=== PATIENT | female | born 1940 | race Caucasian/White ===

== ENCOUNTER → 2016-10-08 | Outpatient (CLI) | payer MEDICARE, BC, OTHER ==
[~2016-10-08] MED LIST: ACET65TA; CALCCHW12; CARV6.25 PO; CENTRUM SILVER; DIGE1CAP2 PO; EYECAP PO; IMOD2TAB16 PO; LAMI1TAB8 PO; LEVO100T5 PO; LEVO100T7; LOSA25TA8 PO; LOTE0.5S OP; METO50TA4; PEPC10TA6 PO; PHEN100C; VITA100067 PO
--- NOTE | 2016-10-08 08:46 | REP ---
Chest two views HISTORY: former smoker Comparison: 02/02/2009 The lungs are clear. The cardiac silhouette is enlarged. The pulmonary vasculature is normal in appearance. The bony structure is intact. IMPRESSION: Cardiomegaly. Signed by Pepito Otoole MD 10/08/2016 08:36 A
== END ==
LOC: M WUC 08:07
PROVIDERS: ATTEND Ophthalmology
DX: Z87.891 Personal history of nicotine dependence (principal); I51.7 Cardiomegaly

== ENCOUNTER → 2016-11-14 | Day surgery (SDC) | payer MEDICARE, BC, OTHER ==
--- NOTE | 2016-11-06 14:48 | CR ---
PREOPERATIVE EVALUATION AND CONSULTATION DATE OF CONSULTATION: 10/16/2016 CONSULTING PHYSICIAN: Yoseph Wilcox MD SURGEON: Marcin Rowan MD PLANNED PROCEDURE: Cataract extraction. CHIEF COMPLAINT: Preoperative evaluation. HISTORY OF PRESENT ILLNESS: 76-year-old patient who presents today for preoperative evaluation and consultation prior to cataract extraction. The patient has no focal complaints. She denies any jatin chest pain, new shortness of breath headache, or vision changes. She does have a number of medical issues. Regarding cardiac risks, the patient denies any cardiac symptoms at this point in time. She sees [facility] once a year for a congenital bicuspid aortic with mild aortic sclerosis, otherwise has controlled hypertension and EKG that has been stable, some chronic cardiomegaly, however no known respiratory issues, distant history of smoking. No issues with anesthesia in the past. The patient does have some irritable bowel and has seen GI in the past, otherwise, no other perioperative issues or concerns. Other medical issues including a known CP angle benign hemangioma and associated seizures for which she follows with neurologist, Dr. Luis. Hypothyroidism, controlled on replacement. History of colon cancer treated with resection, gastroesophageal reflux disease (GERD) treated with famotidine. She has an EpiPen for a nut allergy. Additionally, she has some allergic rhinitis and well controlled hypertension. Otherwise, no other new issues or concerns and each of these appear stable. PAST MEDICAL HISTORY: Hypothyroidism. History of seizures following with Dr. Luis. 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 Osteopenia. Vitamin D deficiency. Aortic sclerosis. Chronic cardiomegaly. PAST SURGICAL HISTORY: Tonsillectomy in 1944. Total thyroidectomy in 2000. Partial hysterectomy in 1981. Colectomy with Dr. Lyman for cancer in situ in 2014. ALLERGIES: 1. Nuts cause anaphylaxis. 2. She reports KEFLEX caused diarrhea (however has irritable bowel with diarrhea for which she has seen GI). 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 She has two sons, lives with her son Mac . Her other son lives in [place]. She is . She is a former smoker from age 17 until age 29. 1-2 packs a day. She has not smoked in the last 47 years. She has rare alcohol intake. FAMILY HISTORY: Father of Parkinson's. Mother of hypertension. PHYSICAL EXAMINATION: VITAL SIGNS: Weight of 109 pounds. Pulse 60. Blood pressure 120/52. Height of 61 inches. GENERAL: No acute distress, nontoxic, alert and oriented times three. She is pleasant, speaks articulately, smiles and interacts. HEAD: Head is atraumatic, normocephalic. No abnormalities of the scalp. EYES: Pupils equal, round and reactive to light and accommodation. Extraocular motions intact. No lesions of the lid or conjunctiva. ENT: Ears are benign as are the canals bilaterally. Oral cavity, oropharynx benign. NECK: Supple. No lymphadenopathy or thyromegaly. HEART: Regular rate and rhythm, S1 and S2. 2/6 systolic murmur is noted. LUNGS: Clear to auscultation bilaterally. No rales, rhonchi or wheezes. ABDOMEN: Soft, nontender, nondistended. No significant issues with pain. EXTREMITIES: No clubbing, cyanosis, or edema. PREOPERATIVE TESTING: Includes a chest x-ray showing only organomegaly. EKG showing sinus bradycardia at 56 beats per minute with nonspecific changes, which have not changed since 10/25/2015. ASSESSMENT/PLAN: 1. Preoperative evaluation and consultation. At this point in time, the patient appears to be optimized on her present medications. She does have risks including valvular heart disease, cardiomegaly, and abnormal EKG. However, each appear to be generally monitored and mitigated at this point in time and she is without significant respiratory or anesthesia risks and will followup appropriately. 2. Cataracts. The patient looks forward to better vision and undergoing surgical intervention. 3. Hypertension. Well controlled on her present regimen. Will continue. 4. Hyperlipidemia. Controlled on diet. Will monitor. 5. Hypothyroidism. Doing well on present dose of replacement. 6. Irritable bowel with diarrhea. She has seen GI, however is using Lomotil as needed. Will monitor. 7. Gastroesophageal reflux disease (GERD). Doing well on famotidine and will continue. 8. Allergic rhinitis. Doing well on as needed use of Claritin. 9. Other seizures. Following with Dr. Luis, is maintained on medications and has had no seizures since then. 10. Cardiac murmur/aortic sclerosis. Following with cardiology annually. She does have a congenital bicuspid aortic valve. 11. Personal history of malignancy of the large colon. The patient had in situ removed by Dr. Lyman and follows with him appropriately. 12. In situ melanoma of the right leg. Patient follows with Shahla Peña. 13. Ongoing care. I am going to see the patient again as scheduled. If she has new problems or other issues sooner, she will let me know.
[~2016-11-14] VITALS: Ht 154.9 cm; Wt 49.9 kg
[~2016-11-14] MED LIST changes: +ACETYLCHOLINE OPHTH SOLN 1% 2ML (MIOCHOL-E) As Ordered ONE; +BALANCED SALT IRRIGATION SOLUTION 500ML BAG (FOR OR EYE MACHINE) As Ordered ONE; +CEFUROXIME 1MG/0.1ML INTRACAMERAL INJ As Ordered ONE; +DUOVISC (0.50ML VISCOAT/0.55ML PROVISC) OPHTH KIT As Ordered ONE; +LIDOCAINE 0.75%/EPINEPHRINE 0.025% IN BSS 1ML SYR INTRACAMERAL (OR ONLY) As Ordered ONE; +LR 1,000 ML IV ONE; +MIDAZOLAM INJ 2 MG/2 ML VIAL (J2250) As Ordered ONE; +OFLOXACIN 0.3 % (OCUFLOX) OPTH SOL 5ML OD ONE; +PHENYLEPHRINE 2.5% OPHTH SOL 2ML OD ONE; +POVIDONE-IODINE 5% OPHTH PREP SOL 30ML As Ordered ONE; +PROPARACAINE 0.5% OPHTH SOL 15ML OD ONE; +TROPICAMIDE 1% OPHTH SOLN 2ML OD ONE; +fentaNYL 100 MCG/2 ML INJECTION (J3010) As Ordered ONE
[2016-11-14 11:30] VITALS: BP 142/80
--- NOTE | 2016-11-14 22:09 | RO ---
DATE OF PROCEDURE: 11/14/2016 PREOPERATIVE DIAGNOSIS: Visually significant nuclear sclerotic cataract right eye. POSTOPERATIVE DIAGNOSIS: Visually significant nuclear sclerotic cataract right eye. PROCEDURE: Cataract extraction with use of phacoemulsification, and placement of intraocular lens, AU00T0, 25.5 diopter, right eye. SURGEON: Marcin Rowan DO MUSIC BOX MECHANIC: ANESTHESIA: Local with monitored anesthesia care (MAC). COMPLICATIONS: None. POSTOPERATIVE CONDITION: Stable. INDICATION FOR SURGERY: Blurred vision right eye affecting patient's activities of daily living. DESCRIPTION OF PROCEDURE: The patient was seen in the preoperative area and properly identified. The correct operative eye was identified and marked. Attention was turned to that eye. The patient received topical antibiotics in the preoperative area. The patient then received topical dilating drops consisting of Tropicamide and Phenylephrine. The patient was then transferred to the operating room. The correct side was re-identified. The patient received topical anesthetics and antibiotics on the surface of the eye. The eye was prepped and draped in a sterile fashion. The upper and lower eyelids were isolated with Tegaderm tape, and the lids were held open with an adjustable speculum. Using a sideport blade, a paracentesis incision was made. Intraocular preservative-free lidocaine was then injected into the anterior chamber. Viscoelastic was then injected into the anterior chamber through the paracentesis. Using a 2.4 mm sharp-tipped keratome, the anterior chamber was entered via a temporal clear corneal incision. A continuous curvilinear capsulorrhexis was created with the aid of a 26g cystotome and utrata forceps. Hydrodissection was performed with balanced salt solution (BSS) on a blunt cannula until the nucleus was freely mobile. The crystalline lens was phacoemulsified and aspirated. Additional cohesive viscoelastic was placed into the capsular bag to deepen it. An AU00T0, 25.5 diopter lens was placed into the capsular bag and confirmed by visualizing the continuous curvilinear capsulorrhexis. Additional irrigation and aspiration was used to remove cortical material and remaining viscoelastic. The clear corneal incision was hydrated with BSS on a blunt cannula. The lens was well positioned. The incisions were then tested for leaks and found to be negative. The eye was then palpated for appropriate pressure and adjusted accordingly with BSS. The eyelid speculum was carefully removed. A shield was placed. The patient tolerated the procedure well and was discharged to the recovery unit in a stable condition. TRISTEN
== END | disposition home or self-care (01) ==
LOC: M SDC 09:28
PROVIDERS: ATTEND Ophthalmology
DX: H25.11 Age-related nuclear cataract, right eye (principal); I10 Essential (primary) hypertension; E03.9 Hypothyroidism, unspecified; I35.9 Nonrheumatic aortic valve disorder, unspecified; R01.1 Cardiac murmur, unspecified; E04.1 Nontoxic single thyroid nodule; R19.7 Diarrhea, unspecified; M12.9 Arthropathy, unspecified; D23.9 Other benign neoplasm of skin, unspecified; Z88.1 Allergy status to other antibiotic agents; Z91.018 Allergy to other foods; Z79.899 Other long term (current) drug therapy; Z86.69 Personal history of other diseases of the nervous system and sense organs; Z90.710 Acquired absence of both cervix and uterus; Z78.0 Asymptomatic menopausal state
CPT/HCPCS: 66984; J2250; J3010; V2632

== ENCOUNTER 2016-11-28 08:58 | Day surgery (SDC) | payer MEDICARE, BC, OTHER ==
[~2016-11-28] VITALS: Ht 154.9 cm; Wt 50.0 kg
[~2016-11-28 08:58] MED LIST changes: -IMOD2TAB16 PO; -LR 1,000 ML IV ONE; -OFLOXACIN 0.3 % (OCUFLOX) OPTH SOL 5ML OD ONE; +OFLOXACIN 0.3 % (OCUFLOX) OPTH SOL 5ML OS ONE; -PHENYLEPHRINE 2.5% OPHTH SOL 2ML OD ONE; +PHENYLEPHRINE 2.5% OPHTH SOL 2ML OS ONE; -PROPARACAINE 0.5% OPHTH SOL 15ML OD ONE; +PROPARACAINE 0.5% OPHTH SOL 15ML OS ONE; -TROPICAMIDE 1% OPHTH SOLN 2ML OD ONE; +TROPICAMIDE 1% OPHTH SOLN 2ML OS ONE
[2016-11-28] MEDS ORDERED: LR 500 ML IV SCH (09:15)
[2016-11-28] MEDS ORDERED: IMOD2TAB16 PO (09:55)
[2016-11-28] MEDS ORDERED: LR 1,000 ML IV SCH (11:00)
[2016-11-28] MEDS ORDERED: ACETAMINOPHEN TAB 650MG DOSE (2X325MG) PO PRN (11:00)
[2016-11-28] MEDS ORDERED: ONDANSETRON 4MG/2ML VIAL (J2405) IV PRN (11:00)
[2016-11-28 11:05] VITALS: BP 152/81
--- NOTE | 2016-11-28 15:52 | RO ---
DATE OF SURGERY: 11/28/2016 PREOPERATIVE DIAGNOSES: 1. Visually significant nuclear sclerotic cataract left eye. 2. Conjunctivochalasis., left eye POSTOPERATIVE DIAGNOSES: 1. Visually significant nuclear sclerotic cataract left eye. 2. Conjunctivochalasis, left eye PROCEDURE: 1. Extracapsular cataract extraction with intraocular lens implant, AU00T0, 26.5 D 2. Conjunctivochalasis repair with use of bent monopolar cautery. SURGEON: Marcin Rowan DO DIRECTOR CREDIT RISK: ANESTHESIA: Local with monitored anesthesia care (MAC). COMPLICATIONS: None. POSTOPERATIVE CONDITION: Stable. INDICATION FOR SURGERY: Blurred vision right eye affecting patient's activities of daily living. DESCRIPTION OF PROCEDURE: The patient was seen in the preoperative area and properly identified. The correct operative eye was identified and marked. Attention was turned to that eye. The patient received topical antibiotics in the preoperative area. The patient then received topical dilating drops consisting of Tropicamide and Phenylephrine. The patient was then transferred to the operating room. The correct side was re-identified. The patient received topical anesthetics and antibiotics on the surface of the eye. The eye was prepped and draped in a sterile fashion. The upper and lower eyelids were isolated with Tegaderm tape, and the lids were held open with an adjustable speculum. Using a sideport blade, a paracentesis incision was made. Intraocular preservative-free lidocaine was then injected into the anterior chamber. Viscoelastic was then injected into the anterior chamber through the paracentesis. Using a 2.4 mm sharp-tipped keratome, the anterior chamber was entered via a temporal clear corneal incision. A continuous curvilinear capsulorrhexis was created with the aid of a 26g cystotome and utrata forceps. Hydrodissection was performed with balanced salt solution (BSS) on a blunt cannula until the nucleus was freely mobile. The crystalline lens was phacoemulsified and aspirated. Additional cohesive viscoelastic was placed into the capsular bag to deepen it. An AU00T0, 26.5 diopters lens was placed into the capsular bag and confirmed by visualizing the continuous curvilinear capsulorrhexis. Additional irrigation and aspiration was used to remove cortical material and remaining viscoelastic. The clear corneal incision was hydrated with BSS on a blunt cannula. The lens was well positioned. The incisions were then tested for leaks and found to be negative. The eye was then palpated for appropriate pressure and adjusted accordingly with BSS. The excess inferior conjunctiva was elevated with forceps. The bent monopolar cautery was then gently applied to the excessive conjunctiva until a whitening appearance was created. This was performed in three different quadrants, inferior and then superior conjunctiva, to create a shrink wrap effect. The patient tolerated the procedure well. The eyelid speculum was carefully removed. A shield was placed. The patient tolerated the procedure well and was discharged to the recovery unit in a stable condition. TRISTEN
== END 2016-11-28 11:40 | disposition home or self-care (01) ==
LOC: M SDC 08:58
PROVIDERS: ATTEND Ophthalmology
DX: H25.12 Age-related nuclear cataract, left eye (principal); H11.822 Conjunctivochalasis, left eye; I10 Essential (primary) hypertension; E03.9 Hypothyroidism, unspecified; I35.9 Nonrheumatic aortic valve disorder, unspecified; R01.1 Cardiac murmur, unspecified; E04.1 Nontoxic single thyroid nodule; R19.7 Diarrhea, unspecified; M12.9 Arthropathy, unspecified; R56.9 Unspecified convulsions; Z88.1 Allergy status to other antibiotic agents; Z91.018 Allergy to other foods; Z79.899 Other long term (current) drug therapy; Z90.710 Acquired absence of both cervix and uterus; Z78.0 Asymptomatic menopausal state
CPT/HCPCS: 66984; 68115; J2250; J3010; V2632

== ENCOUNTER → 2017-04-25 | Outpatient (CLI) | payer MEDICARE, BC, OTHER | LOC: M PLARAD 07:55 | DX: D32.9 Benign neoplasm of meninges, unspecified (principal); Z86.73 Personal history of transient ischemic attack (TIA), and cerebral infarction without residual deficits; I67.82 Cerebral ischemia; G31.9 Degenerative disease of nervous system, unspecified | CPT/HCPCS: 70551 ==

== ENCOUNTER → 2019-03-24 | Outpatient (REF) | payer MEDICARE, BC, OTHER ==
[~2019-03-24] MED LIST changes: -ACETYLCHOLINE OPHTH SOLN 1% 2ML (MIOCHOL-E) As Ordered ONE; -BALANCED SALT IRRIGATION SOLUTION 500ML BAG (FOR OR EYE MACHINE) As Ordered ONE; -CEFUROXIME 1MG/0.1ML INTRACAMERAL INJ As Ordered ONE; -DUOVISC (0.50ML VISCOAT/0.55ML PROVISC) OPHTH KIT As Ordered ONE; +IMOD2TAB16 PO; -LIDOCAINE 0.75%/EPINEPHRINE 0.025% IN BSS 1ML SYR INTRACAMERAL (OR ONLY) As Ordered ONE; +LOSA25TA14 PO; -LOSA25TA8 PO; -MIDAZOLAM INJ 2 MG/2 ML VIAL (J2250) As Ordered ONE; -OFLOXACIN 0.3 % (OCUFLOX) OPTH SOL 5ML OS ONE; -PHENYLEPHRINE 2.5% OPHTH SOL 2ML OS ONE; -POVIDONE-IODINE 5% OPHTH PREP SOL 30ML As Ordered ONE; -PROPARACAINE 0.5% OPHTH SOL 15ML OS ONE; -TROPICAMIDE 1% OPHTH SOLN 2ML OS ONE; -fentaNYL 100 MCG/2 ML INJECTION (J3010) As Ordered ONE
== END ==
LOC: M SFHCWAGY 17:05
PROVIDERS: ATTEND Nurse Practitioner Women's Health
DX: N90.89 Other specified noninflammatory disorders of vulva and perineum (principal)
CPT/HCPCS: 87255; G0463

== ENCOUNTER 2019-10-31 15:33 | Emergency (ER) | payer MEDICARE, BC, OTHER ==
[~2019-10-31] VITALS: Ht 154.9 cm; Wt 48.1 kg
[2019-10-31] MEDS ORDERED: ECOT81TA5 PO (15:48)
[2019-10-31] MEDS ORDERED: FLUORESCEIN OPHTH 1 MG STRIP As Ordered ONE (16:28)
[2019-10-31] MEDS ORDERED: FLUORESCEIN OPHTH 1 MG STRIP OU ONE (16:30)
[2019-10-31] MEDS ORDERED: TETRACAINE 0.5% OPHTH SOLN 4ML OU ONE (16:30)
[2019-10-31 17:05] VITALS: BP 172/77
== END 2019-10-31 17:09 | disposition home or self-care (01) ==
LOC: M ED 15:33
DX: H43.811 Vitreous degeneration, right eye (principal); Z79.899 Other long term (current) drug therapy; Z91.018 Allergy to other foods; Z88.8 Allergy status to other drugs, medicaments and biological substances

== ENCOUNTER → 2019-11-02 | Outpatient (REF) | payer MEDICARE, BC, OTHER ==
[~2019-11-02] MED LIST changes: +ASPI-1 PO; +ECOT81TA5 PO; +LEVO112T2 PO
[2019-11-02 21:14] LABS: AMYLASE 66 U/L (25-115); LIPASE 82 U/L (73-393)
== END ==
LOC: M LAB REF 10:02
PROVIDERS: ATTEND Family Medicine
DX: R10.9 Unspecified abdominal pain (principal)

== ENCOUNTER → 2019-11-07 | Outpatient (REF) | payer MEDICARE, OTHER | LOC: M LAB REF 21:20 | PROVIDERS: ATTEND Family Medicine | DX: R19.7 Diarrhea, unspecified (principal) ==

== ENCOUNTER 2019-12-04 08:52 | Emergency (ER) | payer MEDICARE, BC, OTHER ==
[~2019-12-04] VITALS: Ht 154.9 cm; Wt 48.9 kg
[~2019-12-04 08:52] MED LIST changes: -ASPI-1 PO; -LEVO112T2 PO
[2019-12-04] MEDS ORDERED: LEVO112T2 PO (09:08)
[2019-12-04] MEDS ORDERED: ASPI-1 PO (09:08)
[2019-12-04 09:43] LABS: BASO # 0.1 10^3/uL (0.0-0.2); BASO % 0.5 % (0.0-1.0); EOS # 0.5 10^3/uL (0.0-0.5); EOS % 2.3 % (0.0-3.0); HEMATOCRIT 39.8 % (36.0-47.0); HEMOGLOBIN 12.6 g/dl (12.0-15.5); LYMPH # 1.6 10^3/uL (1.5-5.0); LYMPH % 7.8 % (24.0-44.0); MEAN CORPUSCULAR HEMOGLOBIN 29.3 pg (27.0-33.0); MEAN CORPUSCULAR HGB CONC 31.7 g/dl (32.0-36.5); MEAN CORPUSCULAR VOLUME 92.6 fl (80.0-96.0); MONO # 1.8 10^3/uL (0.0-0.8); MONO % 9.2 % (0.0-5.0); NEUTROPHILS # 15.9 10^3/uL (1.5-8.5); NEUTROPHILS % 79.6 % (36.0-66.0); PLATELET COUNT, AUTOMATED 314 10^3/uL (150-450); WHITE BLOOD COUNT 19.9 10^3/uL (4.0-10.0)
--- NOTE | 2019-12-04 09:58 | REPVR ---
PROCEDURE INFORMATION: Exam: XR Chest, 1 View Exam date and time: 12/04/2019 9:30 AM Age: 79 years old Clinical indication: Chest pain TECHNIQUE: Imaging protocol: XR of the chest Views: 1 view. COMPARISON: CR CHEST 2 VIEW 10/08/2016 8:14 AM FINDINGS: Lungs: Emphysematous change and interstitial prominence. Pleural space: No significant pleural effusion. Heart/Mediastinum: Borderline cardiomegaly. Bones/joints: Osteopenia, degenerative change, and mild scoliosis. When correlating with the previous study, no significant interval changes are present. IMPRESSION: Stable appearance of the chest, not significantly changed from 10/08/16. Electronically signed by: Sb Tovar On 12/04/2019 09:58:36 AM
[2019-12-04 10:41] LABS: ALBUMIN 3.6 GM/DL (3.2-5.2); BILIRUBIN,DIRECT 0.2 MG/DL (0.0-0.2); BILIRUBIN,TOTAL 0.5 MG/DL (0.2-1.0); TOTAL PROTEIN 6.7 GM/DL (6.4-8.2)
[2019-12-04 12:35] LABS: BASO # 0.1 10^3/uL (0.0-0.2); BASO % 0.4 % (0.0-1.0); EOS # 0.3 10^3/uL (0.0-0.5); EOS % 1.7 % (0.0-3.0); HEMATOCRIT 39.5 % (36.0-47.0); HEMOGLOBIN 12.5 g/dl (12.0-15.5); LYMPH # 1.3 10^3/uL (1.5-5.0); LYMPH % 7.2 % (24.0-44.0); MEAN CORPUSCULAR HEMOGLOBIN 29.3 pg (27.0-33.0); MEAN CORPUSCULAR HGB CONC 31.6 g/dl (32.0-36.5); MEAN CORPUSCULAR VOLUME 92.7 fl (80.0-96.0); MONO # 1.7 10^3/uL (0.0-0.8); NEUTROPHILS # 15.1 10^3/uL (1.5-8.5); NEUTROPHILS % 81.2 % (36.0-66.0); PLATELET COUNT, AUTOMATED 301 10^3/uL (150-450); RED BLOOD COUNT 4.26 10^6/uL (4.00-5.40); WHITE BLOOD COUNT 18.6 10^3/uL (4.0-10.0)
[2019-12-04] MEDS ORDERED: GASTROGRAFIN SOLUTION 30ML (Q9963) As Ordered ONE (13:43)
[2019-12-04] MEDS: GASTROGRAFIN SOLUTION 30ML PO SCH ×2 (13:51→14:23)
[2019-12-04] MEDS ORDERED: ISOVUE-370 76% 100ML VIAL As Ordered ONE (15:15)
--- NOTE | 2019-12-04 16:14 | REPVR ---
PROCEDURE INFORMATION: Exam: CT Abdomen And Pelvis With Contrast Exam date and time: 12/04/2019 3:16 PM Age: 79 years old Clinical indication: Abdominal pain; Generalized; Additional info: Leukocytosis, abd pain, change in bowel habitus TECHNIQUE: Imaging protocol: Computed tomography of the abdomen and pelvis with intravenous contrast. Radiation optimization: All CT scans at this facility use at least one of these dose optimization techniques: automated exposure control; mA and/or kV adjustment per patient size (includes targeted exams where dose is matched to clinical indication); or iterative reconstruction. Contrast material: ISOVUE 370; Contrast volume: 100 ml; Contrast route: INTRAVENOUS (IV); COMPARISON: CT ABD PELVIS W/O CONTRAST 09/30/2013 4:04 PM FINDINGS: Lungs: Linear atelectasis in the left lower lobe. Liver: 2.6 cm low-density lesion with peripheral nodular enhancement in the right hepatic dome, most likely reflecting a meningioma. 2.9 cm low-density lesion in the left hepatic lobe, not present on prior CT from 2013. Gallbladder and bile ducts: Multiple large gallstones. Gallbladder is mildly hydropic. No gallbladder wall thickening. Pancreas: Unremarkable. No ductal dilation. Spleen: Unremarkable. Adrenals: Unremarkable. Kidneys and ureters: 1.2 cm fluid density cyst in the left kidney, to which no further follow-up is necessary. No hydronephrosis or stones. Stomach and bowel: Idot-dj-ouysitsl stool burden throughout the colon. Small bowel loops are unremarkable. Appendix: No evidence of appendicitis. Intraperitoneal space: No pneumoperitoneum. No significant fluid collection. Vasculature: Atherosclerotic calcifications of the aorta and major branches. Lymph nodes: No enlarged lymph nodes. Urinary bladder: Unremarkable as visualized. Reproductive: Unremarkable as visualized. Bones/joints: Stable nonspecific sclerotic lesion within the L2 vertebral body. Degenerative changes of the visualized spine. No acute fracture. Soft tissues: Unremarkable. IMPRESSION: 1. Multiple large gallstones within a mildly hydropic gallbladder. Recommend correlation with LFTs and consider dedicated right upper quadrant ultrasound if clinically indicated. 2. Anrw-li-bfqfifoj stool burden throughout the colon. 3. 2.9 cm low-density lesion in the left hepatic lobe, not present on prior CT from 2013. Recommend follow-up dedicated nonemergent abdominal CT or MRI using hepatic mass protocol. 4. Other chronic findings, as above. Electronically signed by: Jay Spivey On 12/04/2019 16:14:00 PM
[2019-12-04 17:45] VITALS: BP 138/73
--- NOTE | 2019-12-04 17:48 | REPVR ---
PROCEDURE INFORMATION: Exam: US Abdomen, Limited; Right Upper Quadrant Exam date and time: 12/04/2019 5:24 PM Age: 79 years old Clinical indication: Abdominal pain; Acute; Additional info: Wbc 19,000, hydrops with stones TECHNIQUE: Imaging protocol: US abdomen. Real time ultrasound with image documentation. Limited exam focused on the right upper quadrant. COMPARISON: CT ABD/PEL W/IV ORAL CONTRAS 12/04/2019 3:16 PM FINDINGS: Liver: 2.4 cm echogenic lesion in the right hepatic lobe, likely hemangioma. Previously seen low-density lesion in the left hepatic lobe on CT is not visualized on this examination. Gallbladder: Multiple large shadowing gallstones. No gallbladder wall thickening. Mildly hydropic gallbladder. Sonographic Sue's sign is negative. Common bile duct: The common bile duct measures up to 0.3 cm in diameter. Pancreas: Visualized pancreas is unremarkable. Right kidney: The right kidney measures 10 cm in length. Normal echogenicity. No hydronephrosis or stones. IMPRESSION: Cholelithiasis in a mildly hydropic gallbladder. No definite sonographic evidence of acute cholecystitis. Electronically signed by: Jay Spivey On 12/04/2019 17:48:22 PM
[2019-12-04] MEDS ORDERED: BISACODYL 5 MG TAB PO ONE (18:00)
[2019-12-04] MEDS ORDERED: ACETAMINOPHEN TAB 650MG DOSE (2X325MG) PO ONE (18:00)
--- NOTE | 2019-12-05 05:41 | ECGEPIP ---
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
== END 2019-12-04 18:54 | disposition home or self-care (01) ==
LOC: M ED 08:52
DX: R07.9 Chest pain, unspecified (principal); D72.829 Elevated white blood cell count, unspecified; K80.80 Other cholelithiasis without obstruction; I10 Essential (primary) hypertension; K21.9 Gastro-esophageal reflux disease without esophagitis; Z88.1 Allergy status to other antibiotic agents; Z88.8 Allergy status to other drugs, medicaments and biological substances; Z91.010 Allergy to peanuts
CPT/HCPCS: 36415; 71045; 74177; 76705; 80047; 80076; 81001; 83690; 84484; 85025; 87086; 93005; 93041; 94760; 99285; Q9967

== ENCOUNTER → 2019-12-15 | Outpatient (REF) | payer MEDICARE, OTHER ==
[~2019-12-15] MED LIST changes: +ASPI-1 PO; +LEVO112T2 PO
== END ==
LOC: M LAB REF 16:31
PROVIDERS: ATTEND Family Medicine
DX: N39.0 Urinary tract infection, site not specified (principal)

== ENCOUNTER → 2020-05-22 | Outpatient (CLI) | payer MEDICARE, BC, OTHER ==
[~2020-05-22] MED LIST changes: +ISOVUE-370 76% 100ML VIAL As Ordered ONE
--- NOTE | 2020-05-22 15:27 | REP ---
INDICATION: LESION LT HEPATIC LOBE. COMPARISON: Comparison is made with prior CT study from December 04, 2019 which was done with IV contrast. Prior CT studies from January 11, 2011 and September 30, 2013 are reviewed. These were noncontrast exams. The most recent prior study is interpreted as showing a 2.9 cm low-density lesion in the left lobe of the liver which was not present on 2014 prior study.. TECHNIQUE: Abdomen CT study is performed prior to and using 3 phase postcontrast acquisition, 3 mm axial images re-formatted. Coronal and sagittal MPR images are included. 100 mL of intravenous Isovue 370 is given. FINDINGS: A stable right hepatic lobe hemangioma is observed measuring approximately 3.1 cm in greatest diameter. This may be a little smaller than on the [address] study. Large faintly opaque gallstones are noted in the gallbladder. Common bile duct and intrahepatic bile ducts are not dilated. No pancreatic or splenic abnormality seen. Normal adrenal glands are observed. The kidneys enhance symmetrically and are morphologically intact. Left hepatic lobe lesion identified on the December 04, 2019 study is again seen. On the noncontrast and arterial phase contrast images there are focal calcifications in this lesion. The lesion measures 3.0 cm in greatest dimension by 1.6 cm by 1.9 cm. On the venous phase imaging, there is some discontinuous peripheral contrast enhancement in the left lobe lesion. This lesion does not fill in however on the 5 minutes delayed images. It is unchanged in size when compared with the December 04, 2019 study. No new hepatic lesion is observed. Study is otherwise unremarkable. IMPRESSION: Two hepatic lesions. No change in hypervascular lesion in the right lobe in the interval since December 04, 2019 study. The new lesion identified recently in the left lobe is unchanged from the recent prior study of December 04, 2019. It contains some calcifications and peripheral discontinuous contrast enhancement. Atypical hemangioma versus other lesion. The imaging findings are nonspecific. Continued follow-up is advised in 6 months. <Electronically signed by Cal Zhao > 05/22/20 1528
== END ==
LOC: M RAD 13:18
PROVIDERS: ATTEND Family Medicine
DX: K76.9 Liver disease, unspecified (principal)
CPT/HCPCS: 74170; Q9967

== ENCOUNTER → 2020-07-04 | Outpatient (REF) | payer MEDICARE, OTHER ==
[~2020-07-04] MED LIST changes: -ISOVUE-370 76% 100ML VIAL As Ordered ONE
== END ==
LOC: M LAB REF 16:14
PROVIDERS: ATTEND Family Medicine
DX: Z85.038 Personal history of other malignant neoplasm of large intestine (principal); Z79.899 Other long term (current) drug therapy

== ENCOUNTER → 2020-10-04 | Outpatient (CLI) | payer MEDICARE, BC, OTHER ==
--- NOTE | 2020-10-04 14:04 | REP ---
INDICATION: KANE OF UNCERTAIN BEHAVIOR. COMPARISON: None. TECHNIQUE: Real-time sonographic evaluation performed of the palpable abnormality in the left posterior neck soft tissues. FINDINGS: An oval, smoothly marginated, well-defined solid nodule is seen at the site of the palpable lump in left posterior neck soft tissues. This measures 1.4 x 0.8 x 1.4 cm. IMPRESSION: Nonspecific solid nodule at the site of the palpable lump left posterior neck soft tissues. Recommend ultrasound-guided sampling. <Electronically signed by Heriberto Bradley > 10/04/20 1400
== END ==
LOC: M RAD 10:42
PROVIDERS: ATTEND Otolaryngology
DX: D48.9 Neoplasm of uncertain behavior, unspecified (principal)

== ENCOUNTER → 2020-11-02 | Outpatient (CLI) | payer MEDICARE, BC, OTHER ==
[~2020-11-02] MED LIST changes: +LIDOCAINE 1% MDV 20ML VIAL As Ordered ONE
[2020-11-02 14:30] VITALS: BP 162/85
--- NOTE | 2020-11-03 17:02 | REP ---
INDICATION: LT POSTERIOR TRIANGLE MASS SOFT TISSUE NECK. COMPARISON: None. TECHNIQUE: The procedure was performed under the direct supervision of Dr. Bradley. The patient has a history of a 1.4 x 0.8 x 1.4 cm well-defined solid nodule in the left posterior neck soft tissue seen on a previous ultrasound dated 10/04/2020. The risks and benefits of the procedure were explained to the patient and informed consent was obtained. The left posterior neck nodule was localized using ultrasound guidance. The skin was prepped and draped in a sterile fashion. 3 mL of 1% lidocaine was used as a local anesthetic. Using ultrasound guidance a 17/18 gauge coaxial needle biopsy system was inserted and advanced into the nodule. Eight core biopsy samples were obtained and sent to the lab for analysis. Estimated blood loss: Less than 1 mL The patient tolerated the procedure well and there were no immediate complications. After the appropriate amount to monitor convalescence the patient was discharged from the department. FINDINGS: None IMPRESSION: Ultrasound-guided left posterior neck nodule biopsy. <Electronically signed by Theodore Holley > 11/03/20 1633 <Electronically signed by Heriberto Bradley > 11/03/20 [id number]
== END ==
LOC: M IRPRO 13:27
PROVIDERS: ATTEND Otolaryngology
DX: C77.0 Secondary and unspecified malignant neoplasm of lymph nodes of head, face and neck (principal)

== ENCOUNTER → 2020-12-01 | Outpatient (CLI) | payer MEDICARE, BC, OTHER ==
[~2020-12-01] MED LIST changes: -LIDOCAINE 1% MDV 20ML VIAL As Ordered ONE; +LOPE-39 PO; +META28.32 PO; +MULTTAB61 PO
--- NOTE | 2020-12-01 13:49 | REPMRS ---
Patient History The patient states she has not had a clinical breast exam in over a year. Patient has history of other cancer at age 80. Patient states no breast complaints today. Patient has signed MRS History Sheet. Digital Woman Screen Mammo: December 01, 2020 - Exam #: [id number] Bilateral CC and MLO view(s) were taken. Technologist: Latricia Lainez, Technologist Prior study comparison: November 13, 2011, bilateral bilat screen digital mammo, performed at [facility] ([facility]). July 28, 2008, bilateral screening mammogram, performed at [facility] ([facility]). FINDINGS: The breast tissue is heterogeneously dense. This may lower the sensitivity of mammography. Screening. Digital screening (2D) mammography was performed bilaterally in the CC and MLO projections. Additionally, breast tomosynthesis (3D mammography) was performed bilaterally in the CC and MLO projections. Todays exam was compared to the prior exam/exams.There are no prior DBT images for comparison. By history, the patient has no complaints of a palpable breast abnormality or other significant breast complaints. The breasts are unchanged in size and shape.Once again, dense heterogenous fibroglandular elements are seen bilaterally in a stable appearing pattern but to such a degree that the sensitivity of the mammogram in detecting cancer is decreased. There are no carlie-soft tissue densities or spiculated masses. There is no internal architectural distortion. There are no suspicious carlie-calcific clusters. Skin thickening or nipple retraction is not present. IMPRESSION: BI-RADS Category 2- Benign Findings. There is no evidence of malignant alteration of the breasts. Followup examination recommended in one year. The Volpara volumetric breast density category is C, the breasts are heterogenously dense which may obscure small masses. This mammogram was read with the assistance of [employer]an FDA approved computer aided detection system for mammography. The lifetime Tyrer-Cuzick score is 1.8 % Due to the density of the breasts or Tyrer Cuzick score of 20% or greater, MRI/whole breast screening ultrasound is warranted. Negative x-ray reports should not delay surgical consultation if a dominant or clinically suspicious mass is present. Not all breast cancers can be identified by mammography. Therefore, we recommend that you continue to perform regular breast self-examination and physical examination and then promptly contact your physician of any concerns or changes. Adenosis and dense breasts may obscure an underlying neoplasm. Assessment: BI-RADS/ACR category 2 mammogram. Benign Findings. Recommendation Routine screening mammogram of both breasts in 1 year. Electronically Signed By: Fred Gregg DO 12/01/20 8081
== END ==
LOC: M WHC 13:00
PROVIDERS: ATTEND Internal Medicine Medical Oncology
DX: Z12.31 Encounter for screening mammogram for malignant neoplasm of breast (principal)

== ENCOUNTER → 2020-12-04 | Outpatient (CLI) | payer MEDICARE, BC, OTHER | LOC: M PLARAD 08:56 | PROVIDERS: ATTEND Internal Medicine Medical Oncology | DX: C77.0 Secondary and unspecified malignant neoplasm of lymph nodes of head, face and neck (principal); Z53.8 Procedure and treatment not carried out for other reasons ==

== ENCOUNTER → 2020-12-15 | Outpatient (REF) | payer MEDICARE, BC, OTHER ==
[~2020-12-15] MED LIST changes: +META0.52 PO
== END ==
LOC: M LAB REF 11:47
PROVIDERS: ATTEND Family Medicine
DX: R10.9 Unspecified abdominal pain (principal)

== ENCOUNTER → 2020-12-22 | Outpatient (CLI) | payer MEDICARE, BC, OTHER | LOC: M LABSMTC 09:36 | PROVIDERS: ATTEND Surgery | DX: Z01.818 Encounter for other preprocedural examination (principal); Z20.822 Contact with and (suspected) exposure to COVID-19 ==

== ENCOUNTER → 2021-04-02 | Outpatient (CLI) | payer MEDICARE, BC, OTHER ==
[~2021-04-02] MED LIST changes: +LOSA25TA13 PO; -LOSA25TA14 PO
== END ==
LOC: M PLARAD 12:04
PROVIDERS: ATTEND Radiology Therapeutic Radiology
DX: C20 Malignant neoplasm of rectum (principal)
CPT/HCPCS: 78815; A9552

== ENCOUNTER → 2021-06-11 | Outpatient (CLI) | payer MEDICARE, BC, OTHER ==
[~2021-06-11] MED LIST changes: +GASTROGRAFIN SOLUTION 30ML (Q9963) As Ordered ONE; +ISOVUE-370 76% 100ML VIAL As Ordered ONE
== END ==
LOC: M RAD 12:54
PROVIDERS: ATTEND Internal Medicine
DX: C20 Malignant neoplasm of rectum (principal); R93.2 Abnormal findings on diagnostic imaging of liver and biliary tract; K76.89 Other specified diseases of liver
CPT/HCPCS: 74177; Q9963; Q9967

== ENCOUNTER → 2021-08-21 | Outpatient (CLI) | payer MEDICARE, BC, OTHER ==
[~2021-08-21] MED LIST changes: -GASTROGRAFIN SOLUTION 30ML (Q9963) As Ordered ONE; -ISOVUE-370 76% 100ML VIAL As Ordered ONE
== END ==
LOC: M ONCR 12:52
PROVIDERS: ATTEND General Practice
DX: C22.1 Intrahepatic bile duct carcinoma (principal); D18.03 Hemangioma of intra-abdominal structures; C77.0 Secondary and unspecified malignant neoplasm of lymph nodes of head, face and neck; R53.83 Other fatigue; K80.20 Calculus of gallbladder without cholecystitis without obstruction; Z91.010 Allergy to peanuts; Z85.048 Personal history of other malignant neoplasm of rectum, rectosigmoid junction, and anus; Z88.1 Allergy status to other antibiotic agents; Z88.8 Allergy status to other drugs, medicaments and biological substances

== ENCOUNTER → 2021-08-27 | Outpatient (CLI) | payer MEDICARE, BC, OTHER | LOC: M LABSMTC 10:07 | PROVIDERS: ATTEND Anesthesiology | DX: Z01.818 Encounter for other preprocedural examination (principal); Z11.52 Encounter for screening for COVID-19 ==

== ENCOUNTER → 2021-08-30 | Outpatient (CLI) | payer MEDICARE, BC, OTHER ==
[~2021-08-30] MED LIST changes: +LIDO1CRE42 TOP; +LIDOCAINE 1% MDV 20ML VIAL As Ordered ONE; +MIDAZOLAM INJ 2MG/2ML VIAL (J2250 PER 1MG) As Ordered ONE; +NS 1,000 ML IV SCH; +ONDA-83 PO; +PROC10TA5 PO; +VANCOMYCIN 1000MG/20ML VIAL As Ordered ONE; +VANCOMYCIN HCL 1,000 MG, VIAL MATE ADAPTER 1 EACH in NS 250 ML IV ONE; +diphenhydrAMINE 50MG/ML VIAL (J1200) As Ordered ONE; +fentaNYL 100 MCG/2 ML INJECTION As Ordered ONE
[2021-08-30 15:45] VITALS: BP 131/59
== END ==
LOC: M IRPRO 11:33
PROVIDERS: ATTEND Internal Medicine Medical Oncology
DX: C20 Malignant neoplasm of rectum (principal)
CPT/HCPCS: 36561; 99152; 99153; C1769; C1788; C1894; J1200; J1642; J1644; J2250; J3010; J3370

== ENCOUNTER → 2021-09-05 | Outpatient (CLI) | payer MEDICARE, BC, OTHER ==
[~2021-09-05] MED LIST changes: -LIDOCAINE 1% MDV 20ML VIAL As Ordered ONE; -MIDAZOLAM INJ 2MG/2ML VIAL (J2250 PER 1MG) As Ordered ONE; -NS 1,000 ML IV SCH; -VANCOMYCIN 1000MG/20ML VIAL As Ordered ONE; -VANCOMYCIN HCL 1,000 MG, VIAL MATE ADAPTER 1 EACH in NS 250 ML IV ONE; -diphenhydrAMINE 50MG/ML VIAL (J1200) As Ordered ONE; -fentaNYL 100 MCG/2 ML INJECTION As Ordered ONE
== END ==
LOC: M RAD 10:41
PROVIDERS: ATTEND Internal Medicine Medical Oncology
DX: R22.1 Localized swelling, mass and lump, neck (principal)

== ENCOUNTER 2021-10-02 13:46 | Emergency (ER) | payer MEDICARE, BC, OTHER ==
[~2021-10-02] VITALS: Ht 154.9 cm; Wt 44.2 kg
[~2021-10-02 13:46] MED LIST changes: +BACT800T5 PO
[2021-10-02 16:53] LABS: BASO # 0.1 10^3/uL (0.0-0.2); EOS # 0.1 10^3/uL (0.0-0.5); EOS % 0.9 % (0.0-3.0); HEMATOCRIT 34.5 % (36.0-47.0); HEMOGLOBIN 10.8 g/dl (12.0-15.5); LYMPH # 2.3 10^3/uL (1.5-5.0); LYMPH % 18.6 % (24.0-44.0); MEAN CORPUSCULAR HEMOGLOBIN 29.3 pg (27.0-33.0); MEAN CORPUSCULAR HGB CONC 31.3 g/dl (32.0-36.5); MEAN CORPUSCULAR VOLUME 93.8 fl (80.0-96.0); MONO # 0.4 10^3/uL (0.0-0.8); MONO % 3.4 % (2.0-8.0); NEUTROPHILS # 9.2 10^3/uL (1.5-8.5); NEUTROPHILS % 75.3 % (36.0-66.0); PLATELET COUNT, AUTOMATED 515 10^3/uL (150-450); RED BLOOD COUNT 3.68 10^6/uL (4.00-5.40); WHITE BLOOD COUNT 12.2 10^3/uL (4.0-10.0)
[2021-10-02 17:25] LABS: BLOOD UREA NITROGEN 14 MG/DL (7-18); CALCIUM LEVEL 9.6 MG/DL (8.8-10.2); CARBON DIOXIDE LEVEL 29 MEQ/L (21-32); CHLORIDE LEVEL 110 MEQ/L (98-107); CREATININE FOR GFR 0.49 MG/DL (0.55-1.30); FREE T4 1.01 NG/DL (0.76-1.46); GLOMERULAR FILTRATION RATE > 60.0 (>32); GLUCOSE, FASTING 76 MG/DL (70-100); POTASSIUM SERUM 4.2 MEQ/L (3.5-5.1); SODIUM LEVEL 142 MEQ/L (136-145)
[2021-10-02] MEDS ORDERED: NS 500 ML IV ONE (19:10)
[2021-10-02 19:27] VITALS: BP 138/69
== END 2021-10-02 19:26 | disposition home or self-care (01) ==
LOC: M ED 13:46
DX: R55 Syncope and collapse (principal); D47.3 Essential (hemorrhagic) thrombocythemia; I10 Essential (primary) hypertension; E03.9 Hypothyroidism, unspecified; E55.9 Vitamin D deficiency, unspecified; K21.9 Gastro-esophageal reflux disease without esophagitis; Z88.1 Allergy status to other antibiotic agents; Z91.018 Allergy to other foods

== ENCOUNTER → 2021-10-29 | Outpatient (CLI) | payer MEDICARE, BC, OTHER ==
[~2021-10-29] MED LIST changes: +GASTROGRAFIN SOLUTION 30ML (Q9963) As Ordered ONE; +ISOVUE-370 76% 100ML VIAL As Ordered ONE
== END ==
LOC: M RAD 10:58
PROVIDERS: ATTEND Internal Medicine Medical Oncology
DX: I77.810 Thoracic aortic ectasia (principal); Z85.048 Personal history of other malignant neoplasm of rectum, rectosigmoid junction, and anus
CPT/HCPCS: 71260; 74177; Q9963; Q9967

== ENCOUNTER → 2021-11-06 | Outpatient (CLI) | payer MEDICARE, BC, OTHER ==
[~2021-11-06] MED LIST changes: -GASTROGRAFIN SOLUTION 30ML (Q9963) As Ordered ONE; -ISOVUE-370 76% 100ML VIAL As Ordered ONE
== END ==
LOC: M CARPUL 14:35
PROVIDERS: ATTEND Physician Assistant
DX: Q23.1 Congenital insufficiency of aortic valve (principal); I77.810 Thoracic aortic ectasia; R00.1 Bradycardia, unspecified

== ENCOUNTER → 2021-11-14 | Outpatient (CLI) | payer MEDICARE, BC, OTHER | LOC: M ONCR 13:01 | PROVIDERS: ATTEND General Practice | DX: C22.1 Intrahepatic bile duct carcinoma (principal); Z85.048 Personal history of other malignant neoplasm of rectum, rectosigmoid junction, and anus; Z79.890 Hormone replacement therapy; Z79.899 Other long term (current) drug therapy; Z87.891 Personal history of nicotine dependence; Z88.1 Allergy status to other antibiotic agents; Z91.018 Allergy to other foods; Z92.21 Personal history of antineoplastic chemotherapy ==

== ENCOUNTER → 2021-12-27 | Outpatient (CLI) | payer MEDICARE, BC, OTHER | LOC: M RAD 09:38 | PROVIDERS: ATTEND Internal Medicine Medical Oncology | DX: R79.89 Other specified abnormal findings of blood chemistry (principal); C24.0 Malignant neoplasm of extrahepatic bile duct ==

== ENCOUNTER 2022-01-11 09:20 | Inpatient (IN) | payer MEDICARE, BC, OTHER ==
[~2022-01-11 09:20] MED LIST changes: +BACTDSTA
[2022-01-11] MEDS ORDERED: HOME MED LIST COMPLETE! XX SCH (10:45)
[2022-01-11 11:11] LABS: ALBUMIN 3.6 GM/DL (3.2-5.2); ALT/SGPT 17 U/L (12-78); BILIRUBIN,TOTAL 0.3 MG/DL (0.2-1.0); BLOOD UREA NITROGEN 11 MG/DL (7-18); CALCIUM LEVEL 8.9 MG/DL (8.8-10.2); CARBON DIOXIDE LEVEL 29 MEQ/L (21-32); CHLORIDE LEVEL 109 MEQ/L (98-107); CREATININE FOR GFR 0.45 MG/DL (0.55-1.30); GLOMERULAR FILTRATION RATE > 60.0 (>32); GLUCOSE, FASTING 92 MG/DL (70-100); SODIUM LEVEL 143 MEQ/L (136-145); TOTAL PROTEIN 5.9 GM/DL (6.4-8.2)
[2022-01-11 11:16] LABS: RSV AMPLIFICATION NEGATIVE (NEGATIVE)
[2022-01-11 11:27] LABS: INR 0.94; PROTHROMBIN TIME 12.7 SECONDS (12.5-14.5)
[2022-01-11] MEDS ORDERED: ACETAMINOPHEN TAB 650MG DOSE (2X325MG) PO ONE (12:30)
[2022-01-11] MEDS ORDERED: PILL CUTTER 1 EACH XX PRN (14:00)
[2022-01-11 17:53] VITALS: BP 154/70
[2022-01-11] MEDS: lamoTRIgine 100MG TAB PO SCH ×2 (18:01→21:24)
[2022-01-11] MEDS: METAMUCIL (PSYLLIUM) PACKET PO SCH (18:01)
[2022-01-11] MEDS: FAMOTIDINE 20 MG TAB PO SCH (18:01)
[2022-01-11 18:46] VITALS: BP 159/71
[2022-01-11 18:59] VITALS: BP 149/69
[2022-01-11 20:00] VITALS: BP 126/56
[2022-01-11] MEDS ORDERED: LOSARTAN 25 MG TAB PO SCH (21:00)
[2022-01-11 21:25] VITALS: BP 126/56
[2022-01-11 21:29] VITALS: BP 145/66
[2022-01-12] VITALS: BP 126/64
[2022-01-12] MEDS ORDERED: ACETAMINOPHEN TAB 650MG DOSE (2X325MG) PO ONE (00:20)
[2022-01-12 03:05] LABS: HEMOGLOBIN 8.2 g/dl (12.0-15.5); MEAN CORPUSCULAR HEMOGLOBIN 31.7 pg (27.0-33.0); MEAN CORPUSCULAR HGB CONC 31.5 g/dl (32.0-36.5); MEAN CORPUSCULAR VOLUME 100.4 fl (80.0-96.0); RED BLOOD COUNT 2.59 10^6/uL (4.00-5.40); WHITE BLOOD COUNT 13.9 10^3/uL (4.0-10.0)
[2022-01-12 03:56] LABS: PLATELET COUNT, AUTOMATED 41 10^3/uL (150-450)
[2022-01-12 04:00] VITALS: BP 119/57
[2022-01-12] MEDS ORDERED: LEVOTHYROXINE 112MCG TABLET (0.112MG) PO SCH (06:00)
[2022-01-12 07:21] LABS: HEMATOCRIT 30.2 % (36.0-47.0); HEMOGLOBIN 9.2 g/dl (12.0-15.5); MEAN CORPUSCULAR HEMOGLOBIN 30.9 pg (27.0-33.0); MEAN CORPUSCULAR HGB CONC 30.5 g/dl (32.0-36.5); MEAN CORPUSCULAR VOLUME 101.3 fl (80.0-96.0); RED BLOOD COUNT 2.98 10^6/uL (4.00-5.40); WHITE BLOOD COUNT 13.1 10^3/uL (4.0-10.0)
[2022-01-12 07:22] LABS: PLATELET COUNT, AUTOMATED 43 10^3/uL (150-450)
[2022-01-12 07:47] VITALS: BP 140/65
[2022-01-12 07:49] LABS: ALBUMIN 3.4 GM/DL (3.2-5.2); ALT/SGPT 24 U/L (12-78); BILIRUBIN,TOTAL 0.3 MG/DL (0.2-1.0); BLOOD UREA NITROGEN 9 MG/DL (7-18); CARBON DIOXIDE LEVEL 30 MEQ/L (21-32); CHLORIDE LEVEL 109 MEQ/L (98-107); CREATININE FOR GFR 0.51 MG/DL (0.55-1.30); GLOMERULAR FILTRATION RATE > 60.0 (>32); GLUCOSE, FASTING 87 MG/DL (70-100); POTASSIUM SERUM 3.8 MEQ/L (3.5-5.1); SODIUM LEVEL 143 MEQ/L (136-145); TOTAL PROTEIN 5.9 GM/DL (6.4-8.2)
[2022-01-12 08:04] LABS: ATYPICAL LYMPH 1 % (0-5); EOSINOPHILS 2 % (0-3); LYMPHOCYTES 20 % (16-44); MONOCYTES 4 % (0-5); NEUTROPHILS 69 % (28-66)
[2022-01-12 08:05] LABS: PLATELET ESTIMATE MARKED DECREASE (NORMAL); SMUDGE CELLS 1+
[2022-01-12 08:06] LABS: ANISOCYTOSIS 1+; OVALOCYTES 1+; TEAR DROP CELLS 1+
[2022-01-12 08:07] LABS: SCHISTOCYTES 1+
[2022-01-12 08:08] LABS: TOXIC GRANULATION 1+
[2022-01-12] MEDS: lamoTRIgine 100MG TAB PO SCH (08:27)
[2022-01-12] MEDS: FAMOTIDINE 20 MG TAB PO SCH (08:27)
[2022-01-12] MEDS: METAMUCIL (PSYLLIUM) PACKET PO SCH (08:28)
== END 2022-01-12 12:05 | disposition home health service (06) | DRG 813 ==
LOC: M ED 09:20 → M ED INP 13:24 → ENRESERV 14:06 → M PCU 17:49
PROVIDERS: ADMIT Internal Medicine; ATTEND Internal Medicine
PROC: 30233R1 Transfusion of Nonautologous Platelets into Peripheral Vein, Percutaneous Approach (ICD-10-PCS; principal; 2022-01-11)
DX: D69.59 Other secondary thrombocytopenia (principal); N39.0 Urinary tract infection, site not specified; C21.8 Malignant neoplasm of overlapping sites of rectum, anus and anal canal; C22.1 Intrahepatic bile duct carcinoma; E55.9 Vitamin D deficiency, unspecified; I10 Essential (primary) hypertension; E03.9 Hypothyroidism, unspecified; Z66 Do not resuscitate; J30.9 Allergic rhinitis, unspecified; L71.9 Rosacea, unspecified; D64.9 Anemia, unspecified; R31.9 Hematuria, unspecified; S00.93XA Contusion of unspecified part of head, initial encounter; T45.1X5A Adverse effect of antineoplastic and immunosuppressive drugs, initial encounter; I48.91 Unspecified atrial fibrillation; R79.89 Other specified abnormal findings of blood chemistry; K59.00 Constipation, unspecified; Z88.1 Allergy status to other antibiotic agents; Z91.018 Allergy to other foods; W18.30XA Fall on same level, unspecified, initial encounter; Y92.009 Unspecified place in unspecified non-institutional (private) residence as the place of occurrence of the external cause; Y93.89 Activity, other specified; Y99.8 Other external cause status; Z87.891 Personal history of nicotine dependence; Z85.820 Personal history of malignant melanoma of skin; Z79.890 Hormone replacement therapy; Z79.899 Other long term (current) drug therapy

== ENCOUNTER → 2022-03-27 | Outpatient (CLI) | payer MEDICARE, BC, OTHER ==
[~2022-03-27] MED LIST changes: +GASTROGRAFIN SOLUTION 30ML As Ordered ONE; +ISOVUE-370 76% 100ML VIAL As Ordered ONE
== END ==
LOC: M RAD 15:52
PROVIDERS: ATTEND Internal Medicine Medical Oncology
DX: C20 Malignant neoplasm of rectum (principal)
CPT/HCPCS: 74177; Q9963; Q9967

== ENCOUNTER → 2022-04-17 | Outpatient (CLI) | payer MEDICARE, BC, OTHER ==
[~2022-04-17] MED LIST changes: -GASTROGRAFIN SOLUTION 30ML As Ordered ONE; -ISOVUE-370 76% 100ML VIAL As Ordered ONE
== END ==
LOC: M ONCR 14:08
PROVIDERS: ATTEND General Practice
DX: C20 Malignant neoplasm of rectum (principal); C22.1 Intrahepatic bile duct carcinoma; Z79.890 Hormone replacement therapy; Z79.899 Other long term (current) drug therapy; Z87.891 Personal history of nicotine dependence; Z88.1 Allergy status to other antibiotic agents; Z91.018 Allergy to other foods; Z92.21 Personal history of antineoplastic chemotherapy

== ENCOUNTER 2022-04-24 13:53 | Outpatient (RCR) | payer MEDICARE, BC, OTHER | END 2022-04-30 | LOC: M ONCR 13:53 | PROVIDERS: ATTEND General Practice | DX: C20 Malignant neoplasm of rectum (principal) ==

== ENCOUNTER 2022-05-17 09:44 | Outpatient (RCR) | payer MEDICARE, BC, OTHER | END 2022-05-31 | LOC: M ONCR 09:44 | PROVIDERS: ATTEND General Practice | DX: C22.1 Intrahepatic bile duct carcinoma (principal); C20 Malignant neoplasm of rectum | CPT/HCPCS: 77295; 77300; 77334; 77336; 77387; 77412; G0463 ==

== ENCOUNTER → 2022-05-28 | Outpatient (CLI) | payer MEDICARE, BC, OTHER | LOC: M ONCR 12:21 | PROVIDERS: ATTEND General Practice | DX: C20 Malignant neoplasm of rectum (principal); Z92.3 Personal history of irradiation; K64.8 Other hemorrhoids ==

== ENCOUNTER → 2022-06-26 | Outpatient (CLI) | payer MEDICARE, BC, OTHER ==
[~2022-06-26] MED LIST changes: +GASTROGRAFIN SOLUTION 30ML As Ordered ONE; +ISOVUE-370 76% 100ML VIAL As Ordered ONE
== END ==
LOC: M RAD 11:55
PROVIDERS: ATTEND Internal Medicine Medical Oncology
DX: C24.9 Malignant neoplasm of biliary tract, unspecified (principal); J38.7 Other diseases of larynx; D32.0 Benign neoplasm of cerebral meninges; M50.30 Other cervical disc degeneration, unspecified cervical region; I65.23 Occlusion and stenosis of bilateral carotid arteries; Z97.8 Presence of other specified devices; J43.2 Centrilobular emphysema; J47.1 Bronchiectasis with (acute) exacerbation; R91.8 Other nonspecific abnormal finding of lung field; J98.11 Atelectasis; I51.7 Cardiomegaly; I71.23 Aneurysm of the descending thoracic aorta, without rupture; M19.011 Primary osteoarthritis, right shoulder; M19.012 Primary osteoarthritis, left shoulder; M51.34 Other intervertebral disc degeneration, thoracic region; M41.9 Scoliosis, unspecified; K80.18 Calculus of gallbladder with other cholecystitis without obstruction; E27.9 Disorder of adrenal gland, unspecified; N27.9 Small kidney, unspecified; N28.1 Cyst of kidney, acquired; I70.0 Atherosclerosis of aorta; Z90.710 Acquired absence of both cervix and uterus; M43.16 Spondylolisthesis, lumbar region; M48.061 Spinal stenosis, lumbar region without neurogenic claudication
CPT/HCPCS: 70491; 71260; 74177; Q9963; Q9967

== ENCOUNTER → 2022-08-16 | Outpatient (CLI) | payer MEDICARE, BC, OTHER ==
[~2022-08-16] MED LIST changes: +CAPE1TAB2 PO; -GASTROGRAFIN SOLUTION 30ML As Ordered ONE; -ISOVUE-370 76% 100ML VIAL As Ordered ONE
== END ==
LOC: M ONCR 10:15
PROVIDERS: ATTEND General Practice
DX: C22.1 Intrahepatic bile duct carcinoma (principal); C78.5 Secondary malignant neoplasm of large intestine and rectum; Z92.21 Personal history of antineoplastic chemotherapy; Z92.3 Personal history of irradiation; Z98.890 Other specified postprocedural states; K64.4 Residual hemorrhoidal skin tags; Z71.2 Person consulting for explanation of examination or test findings; Z79.890 Hormone replacement therapy; Z79.899 Other long term (current) drug therapy; Z88.1 Allergy status to other antibiotic agents; Z91.010 Allergy to peanuts; Z91.041 Radiographic dye allergy status

== ENCOUNTER → 2022-11-21 | Outpatient (CLI) | payer MEDICARE, BC, OTHER ==
[~2022-11-21] MED LIST changes: +ACET1TAB55 PO; +GASTROGRAFIN SOLUTION 30ML As Ordered ONE; +ISOVUE-370 76% 100ML VIAL As Ordered ONE; -LIDO1CRE42 TOP; +LIDO30CR18 TOP
== END ==
LOC: M RAD 12:12
PROVIDERS: ATTEND Nurse Practitioner
DX: C20 Malignant neoplasm of rectum (principal); D35.02 Benign neoplasm of left adrenal gland; K80.20 Calculus of gallbladder without cholecystitis without obstruction; R91.8 Other nonspecific abnormal finding of lung field
CPT/HCPCS: 71260; 74177; Q9963; Q9967

== ENCOUNTER 2022-12-05 16:13 | Inpatient (IN) | payer MEDICARE, BC, OTHER ==
[~2022-12-05] VITALS: Ht 154.9 cm; Wt 40.2 kg
[~2022-12-05 16:13] MED LIST changes: -ACET1TAB55 PO; -GASTROGRAFIN SOLUTION 30ML As Ordered ONE; -ISOVUE-370 76% 100ML VIAL As Ordered ONE
[2022-12-05 20:18] LABS: BASO # 0.1 10^3/uL (0.0-0.2); BASO % 0.6 % (0.0-1.0); EOS # 0.3 10^3/uL (0.0-0.5); EOS % 3.3 % (0.0-3.0); HEMATOCRIT 32.8 % (36.0-47.0); HEMOGLOBIN 10.4 g/dl (12.0-15.5); LYMPH # 1.1 10^3/uL (1.5-5.0); LYMPH % 11.6 % (24.0-44.0); MEAN CORPUSCULAR HGB CONC 31.7 g/dl (32.0-36.5); MEAN CORPUSCULAR VOLUME 100.9 fl (80.0-96.0); MONO # 0.9 10^3/uL (0.0-0.8); MONO % 9.4 % (2.0-8.0); NEUTROPHILS % 74.8 % (36.0-66.0); PLATELET COUNT, AUTOMATED 187 10^3/uL (150-450); RED BLOOD COUNT 3.25 10^6/uL (4.00-5.40); WHITE BLOOD COUNT 9.4 10^3/uL (4.0-10.0)
[2022-12-05 20:23] LABS: BLOOD UREA NITROGEN 25 MG/DL (9-23); CALCIUM LEVEL 9.2 MG/DL (8.3-10.6); CARBON DIOXIDE LEVEL 29 MMOL/L (20-31); CHLORIDE LEVEL 108 MMOL/L (98-107); CK-MB VALUE MASS < 1.0 NG/ML (<3.6); CREATININE FOR GFR 0.72 MG/DL (0.55-1.30); GLOMERULAR FILTRATION RATE > 60.0 (>32); GLUCOSE, FASTING 103 MG/DL (74-106); POTASSIUM SERUM 5.1 MMOL/L (3.5-5.1); SODIUM LEVEL 141 MMOL/L (136-145)
[2022-12-05 20:25] LABS: FREE T4 1.28 NG/DL (0.89-1.76); THYROID STIMULATING HORMONE 0.995 uIU/ML (0.55-4.78)
[2022-12-05 20:31] LABS: CPK CREATINE PHOSPHOKINASE 42 U/L (34-145); MB/CK RELATIVE INDEX 2.38 (< OR =4)
[2022-12-05] MEDS ORDERED: LOSARTAN 25 MG TAB PO SCH (21:00)
[2022-12-05] MEDS ORDERED: NS 1,000 ML IV SCH (23:30)
[2022-12-05] MEDS ORDERED: HOME MED LIST COMPLETE! XX SCH (23:50)
[2022-12-05] MEDS ORDERED: FAMOTIDINE 20 MG TAB PO PRN (23:55)
[2022-12-06] MEDS ORDERED: PILL CUTTER 1 EACH XX PRN (00:05)
[2022-12-06] MEDS ORDERED: lamoTRIgine 100MG TAB PO ONE (01:00)
[2022-12-06] MEDS ORDERED: ACETAMINOPHEN TAB 650MG DOSE (2X325MG) PO PRN (02:20)
[2022-12-06] MEDS: CARVedilol 6.25 MG TAB PO SCH ×2 (02:26→09:19)
[2022-12-06 03:16] LABS: RSV AMPLIFICATION NEGATIVE (NEGATIVE)
[2022-12-06] MEDS: LEVOTHYROXINE 112MCG TABLET (0.112MG) PO SCH (06:22)
[2022-12-06 06:54] LABS: HEMATOCRIT 31.9 % (36.0-47.0); HEMOGLOBIN 10.2 g/dl (12.0-15.5); MEAN CORPUSCULAR HEMOGLOBIN 32.2 pg (27.0-33.0); MEAN CORPUSCULAR VOLUME 100.6 fl (80.0-96.0); PLATELET COUNT, AUTOMATED 164 10^3/uL (150-450); RED BLOOD COUNT 3.17 10^6/uL (4.00-5.40); WHITE BLOOD COUNT 7.9 10^3/uL (4.0-10.0)
[2022-12-06 07:06] LABS: ALBUMIN 2.9 G/DL (3.2-5.2); ALKALINE PHOSPHATASE 182 U/L (46-116); ALT/SGPT 14 U/L (7.0-40); AST/SGOT 21 U/L (<34); BILIRUBIN,TOTAL 0.4 MG/DL (0.3-1.2); BLOOD UREA NITROGEN 17 MG/DL (9-23); CALCIUM LEVEL 9.3 MG/DL (8.3-10.6); CARBON DIOXIDE LEVEL 32 MMOL/L (20-31); CHLORIDE LEVEL 111 MMOL/L (98-107); CREATININE FOR GFR 0.68 MG/DL (0.55-1.30); GLOMERULAR FILTRATION RATE > 60.0 (>32); GLUCOSE, FASTING 94 MG/DL (74-106); POTASSIUM SERUM 4.4 MMOL/L (3.5-5.1); SODIUM LEVEL 145 MMOL/L (136-145); TOTAL PROTEIN 5.5 G/DL (5.7-8.2)
[2022-12-06 09:00] VITALS: BP_SYST 112; BP_SYST 120; BP_DIAS 55; BP_DIAS 57; BP_DIAS 78
[2022-12-06] MEDS: lamoTRIgine 100MG TAB PO SCH ×2 (09:18→20:56)
[2022-12-06 09:19] VITALS: BP 146/68
[2022-12-06] MEDS: NS 1,000 ML IV SCH (12:41)
[2022-12-06 14:15] VITALS: BP 138/72; TEMP 97.3; O2SAT 97
[2022-12-06 20:05] VITALS: BP 122/60; TEMP 98.1; O2SAT 95
[2022-12-07] MEDS: NS 1,000 ML IV SCH (03:20)
[2022-12-07 05:20] VITALS: BP 132/63; TEMP 97.3; O2SAT 95
[2022-12-07] MEDS: LEVOTHYROXINE 112MCG TABLET (0.112MG) PO SCH (05:49)
[2022-12-07 05:50] VITALS: BP_SYST 133; BP_SYST 135; BP_SYST 147; BP_DIAS 65; BP_DIAS 76; BP_DIAS 78
[2022-12-07 06:29] LABS: HEMATOCRIT 31.9 % (36.0-47.0); HEMOGLOBIN 10.3 g/dl (12.0-15.5); MEAN CORPUSCULAR HEMOGLOBIN 32.4 pg (27.0-33.0); MEAN CORPUSCULAR HGB CONC 32.3 g/dl (32.0-36.5); MEAN CORPUSCULAR VOLUME 100.3 fl (80.0-96.0); PLATELET COUNT, AUTOMATED 175 10^3/uL (150-450); RED BLOOD COUNT 3.18 10^6/uL (4.00-5.40); WHITE BLOOD COUNT 7.6 10^3/uL (4.0-10.0)
[2022-12-07 06:58] LABS: ALBUMIN 2.7 G/DL (3.2-5.2); ALKALINE PHOSPHATASE 174 U/L (46-116); ALT/SGPT 13 U/L (7.0-40); AST/SGOT 17 U/L (<34); BILIRUBIN,TOTAL 0.2 MG/DL (0.3-1.2); BLOOD UREA NITROGEN 13 MG/DL (9-23); CALCIUM LEVEL 8.8 MG/DL (8.3-10.6); CARBON DIOXIDE LEVEL 27 MMOL/L (20-31); CHLORIDE LEVEL 112 MMOL/L (98-107); CREATININE FOR GFR 0.58 MG/DL (0.55-1.30); GLOMERULAR FILTRATION RATE > 60.0 (>32); GLUCOSE, FASTING 86 MG/DL (74-106); POTASSIUM SERUM 4.3 MMOL/L (3.5-5.1); SODIUM LEVEL 144 MMOL/L (136-145); TOTAL PROTEIN 5.2 G/DL (5.7-8.2)
[2022-12-07] MEDS ORDERED: ACET1TAB55 PO (07:40)
[2022-12-07] MEDS: lamoTRIgine 100MG TAB PO SCH (09:16)
== END 2022-12-07 10:05 | disposition home or self-care (01) | DRG 312 ==
LOC: M ED 16:13 → M ED INP 23:28 → ENRESERV 12-06 12:17 → M MSPAV 12-06 14:11
PROVIDERS: ADMIT Family Medicine; ATTEND Internal Medicine
DX: I95.1 Orthostatic hypotension (principal); C23 Malignant neoplasm of gallbladder; G40.909 Epilepsy, unspecified, not intractable, without status epilepticus; I10 Essential (primary) hypertension; L71.9 Rosacea, unspecified; J30.9 Allergic rhinitis, unspecified; E89.0 Postprocedural hypothyroidism; M79.89 Other specified soft tissue disorders; S00.03XA Contusion of scalp, initial encounter; W18.30XA Fall on same level, unspecified, initial encounter; Y92.89 Other specified places as the place of occurrence of the external cause; Y93.89 Activity, other specified; X58.XXXA Exposure to other specified factors, initial encounter; Z66 Do not resuscitate; Z79.69 Long term (current) use of other immunomodulators and immunosuppressants; Z95.820 Peripheral vascular angioplasty status with implants and grafts; Z79.890 Hormone replacement therapy; Z79.899 Other long term (current) drug therapy; Z91.018 Allergy to other foods; Z91.041 Radiographic dye allergy status; Z88.1 Allergy status to other antibiotic agents

== ENCOUNTER 2022-12-20 07:46 | Emergency (ER) | payer MEDICARE, BC, OTHER ==
[~2022-12-20] VITALS: Ht 154.9 cm; Wt 41.5 kg
[~2022-12-20 07:46] MED LIST changes: +ACET1TAB55 PO
[2022-12-20] MEDS ORDERED: NS 1,000 ML IV ONE (08:10)
[2022-12-20] MEDS ORDERED: ONDANSETRON 4MG 2ML VIAL IV ONE (08:55)
[2022-12-20 09:08] LABS: BASO % 0.2 % (0.0-1.0); EOS % 0.1 % (0.0-3.0); HEMATOCRIT 35.3 % (36.0-47.0); HEMOGLOBIN 11.4 g/dl (12.0-15.5); LYMPH # 0.3 10^3/uL (1.5-5.0); LYMPH % 1.7 % (24.0-44.0); MEAN CORPUSCULAR HEMOGLOBIN 32.7 pg (27.0-33.0); MEAN CORPUSCULAR HGB CONC 32.3 g/dl (32.0-36.5); MEAN CORPUSCULAR VOLUME 101.1 fl (80.0-96.0); MONO # 0.5 10^3/uL (0.0-0.8); MONO % 2.9 % (2.0-8.0); NEUTROPHILS # 14.8 10^3/uL (1.5-8.5); NEUTROPHILS % 94.7 % (36.0-66.0); PLATELET COUNT, AUTOMATED 169 10^3/uL (150-450); RED BLOOD COUNT 3.49 10^6/uL (4.00-5.40); WHITE BLOOD COUNT 15.7 10^3/uL (4.0-10.0)
[2022-12-20] MEDS: fentaNYL 100 MCG/2 ML INJECTION IV PRN ×2 (09:19→13:42)
[2022-12-20] MEDS ORDERED: LACTOBACILLUS ACIDOPHILUS CAP (BACID) PO ONE (09:25)
[2022-12-20] MEDS ORDERED: ISOVUE-370 76% 100ML VIAL As Ordered ONE (09:33)
[2022-12-20 09:47] LABS: ERYTHROCYTE SEDIMENTATION RATE 17 mm/hr (0-30)
[2022-12-20 09:48] LABS: RSV AMPLIFICATION NEGATIVE (NEGATIVE)
[2022-12-20] MEDS ORDERED: PIPERACILLIN/TAZOBACTAM SOD 3.375 GM in D5W MINI-BAG PLUS 50 ML IV ONE (10:00)
[2022-12-20 10:06] LABS: PARTIAL THROMBOPLASTIN TIME 25.7 SECONDS (24.8-34.2); PROTHROMBIN TIME 12.9 SECONDS (12.5-14.5)
[2022-12-20] MEDS ORDERED: LIDOCAINE 5% (LIDODERM) PATCH TD ONE (12:00)
[2022-12-20] MEDS ORDERED: D5W/0.45% SODIUM CHLORIDE 1,000 ML IV ONE (13:30)
[2022-12-20] MEDS ORDERED: fentaNYL 100 MCG/2 ML INJECTION IV ONE ×2 (15:00→16:00)
[2022-12-20 16:35] VITALS: BP 141/61; TEMP 97.3; O2SAT 94
[2022-12-21 12:14] LABS: ALT/SGPT 98 U/L (1-33); AST/SGOT 189 U/L (5-40); BLOOD UREA NITROGEN 15 MG/DL (7-21); CALCIUM LEVEL 9.7 MG/DL (8.8-10.2); CARBON DIOXIDE LEVEL 22 MEQ/L (22-30); CHLORIDE LEVEL 102 MEQ/L (98-107); CREATININE FOR GFR 0.4 MG/DL (0.7-1.5); GLOMERULAR FILTRATION RATE > 60.0 (>32); GLUCOSE, FASTING 146 MG/DL; POTASSIUM SERUM 4.4 MEQ/L (3.6-5.0); SODIUM LEVEL 138 MEQ/L (134-153)
[2022-12-21 12:15] LABS: ALBUMIN 4.1 G/DL (3.9-5.0); ALKALINE PHOSPHATASE 281 U/L (35-104); BILIRUBIN,DIRECT 1.3 MG/DL (0.1-0.4); BILIRUBIN,TOTAL 2.1 MG/DL (0.2-1.3); LIPASE 1190 U/L (13-60); TOTAL PROTEIN 6.6 G/DL (6.3-8.2)
[2022-12-21 12:16] LABS: AMYLASE 676 U/L (30-110)
== END 2022-12-20 16:40 | disposition short-term general hospital (02) ==
LOC: M ED 07:46
DX: D01.5 Carcinoma in situ of liver, gallbladder and bile ducts (principal); R10.9 Unspecified abdominal pain; I10 Essential (primary) hypertension; Z87.891 Personal history of nicotine dependence; K82.8 Other specified diseases of gallbladder; Z79.899 Other long term (current) drug therapy; Z88.1 Allergy status to other antibiotic agents; Z88.8 Allergy status to other drugs, medicaments and biological substances; Z91.041 Radiographic dye allergy status; Z91.010 Allergy to peanuts
CPT/HCPCS: 71045; 74177; 76705; 80047; 80048; 80076; 80175; 81001; 82150; 83605; 83690; 85025; 85610; 85652; 85730; 86140; 86850; 86900; 86901; 87040; 87631; 93005; 93041; 96365; 96367; 96375; 96376; 99285; J2405; J2543; J3010; Q9967

== ENCOUNTER → 2022-12-31 | Outpatient (REF) | payer MEDICARE, BC, OTHER ==
[2022-12-31 13:28] LABS: PHOSPHORUS LEVEL 2.9 MG/DL (2.4-5.1)
== END ==
LOC: M LAB REF 12:37
PROVIDERS: ATTEND Family Medicine
DX: R93.2 Abnormal findings on diagnostic imaging of liver and biliary tract (principal)

== ENCOUNTER → 2023-02-19 | Outpatient (REF) | payer MEDICARE, OTHER ==
[~2023-02-19] MED LIST changes: +FERR325T3 PO
== END ==
LOC: M LAB REF 16:43
PROVIDERS: ATTEND Family Medicine
DX: G40.89 Other seizures (principal)

== ENCOUNTER 2023-03-21 15:42 | Emergency (ER) | payer MEDICARE, BC, OTHER ==
[~2023-03-21] VITALS: Ht 154.9 cm; Wt 41.2 kg
[~2023-03-21 15:42] MED LIST changes: +LEVO1TAB39 PO
[2023-03-21 17:43] LABS: BASO # 0.1 10^3/uL (0.0-0.2); BASO % 0.5 % (0.0-1.0); EOS # 0.2 10^3/uL (0.0-0.5); EOS % 1.7 % (0.0-3.0); HEMATOCRIT 35.8 % (36.0-47.0); HEMOGLOBIN 11.2 g/dl (12.0-15.5); LYMPH % 8.6 % (24.0-44.0); MEAN CORPUSCULAR HEMOGLOBIN 30.4 pg (27.0-33.0); MEAN CORPUSCULAR HGB CONC 31.3 g/dl (32.0-36.5); MONO % 8.9 % (2.0-8.0); NEUTROPHILS % 79.2 % (36.0-66.0); PLATELET COUNT, AUTOMATED 195 10^3/uL (150-450); RED BLOOD COUNT 3.69 10^6/uL (4.00-5.40); WHITE BLOOD COUNT 11.4 10^3/uL (4.0-10.0)
[2023-03-21 17:59] LABS: BLOOD UREA NITROGEN 21 MG/DL (9-23); CALCIUM LEVEL 9.2 MG/DL (8.3-10.6); CARBON DIOXIDE LEVEL 28 MMOL/L (20-31); CHLORIDE LEVEL 104 MMOL/L (98-107); CK-MB VALUE MASS < 1.0 NG/ML (<3.6); CPK CREATINE PHOSPHOKINASE 35 U/L (34-145); CREATININE FOR GFR 0.67 MG/DL (0.55-1.30); GLOMERULAR FILTRATION RATE > 60.0 (>32); GLUCOSE, FASTING 100 MG/DL (74-106); MB/CK RELATIVE INDEX 2.85 (< OR =4); POTASSIUM SERUM 4.1 MMOL/L (3.5-5.1); SODIUM LEVEL 136 MMOL/L (136-145)
[2023-03-21 18:01] LABS: THYROID STIMULATING HORMONE 2.094 uIU/ML (0.55-4.78)
[2023-03-21 18:04] LABS: INR 1.1; PROTHROMBIN TIME 13.9 SECONDS (12.5-14.5)
[2023-03-21 18:15] VITALS: BP 130/73; O2SAT 99
== END 2023-03-21 18:48 | disposition home or self-care (01) ==
LOC: M ED 15:42
DX: R55 Syncope and collapse (principal); I51.9 Heart disease, unspecified; Z79.899 Other long term (current) drug therapy; Z88.1 Allergy status to other antibiotic agents; Z88.8 Allergy status to other drugs, medicaments and biological substances; Z91.010 Allergy to peanuts; Z91.041 Radiographic dye allergy status

== ENCOUNTER 2023-04-07 18:30 | Inpatient (IN) | payer MEDICARE, BC, OTHER ==
[~2023-04-07] VITALS: Ht 154.9 cm; Wt 40.5 kg
[2023-04-07 19:20] LABS: BASO % 0.2 % (0.0-1.0); EOS # 0.1 10^3/uL (0.0-0.5); EOS % 0.8 % (0.0-3.0); HEMOGLOBIN 12.8 g/dl (12.0-15.5); MEAN CORPUSCULAR HEMOGLOBIN 31.1 pg (27.0-33.0); MEAN CORPUSCULAR VOLUME 97.1 fl (80.0-96.0); MONO # 0.8 10^3/uL (0.0-0.8); MONO % 4.8 % (2.0-8.0); NEUTROPHILS # 14.9 10^3/uL (1.5-8.5); NEUTROPHILS % 87.8 % (36.0-66.0); PLATELET COUNT, AUTOMATED 241 10^3/uL (150-450); RED BLOOD COUNT 4.12 10^6/uL (4.00-5.40); WHITE BLOOD COUNT 16.9 10^3/uL (4.0-10.0)
[2023-04-07 19:41] LABS: LIPASE 25 U/L (12-53)
[2023-04-07 19:43] LABS: ALKALINE PHOSPHATASE 224 U/L (46-116); ALT/SGPT 13 U/L (7.0-40); AST/SGOT 20 U/L (<34); BILIRUBIN,DIRECT 0.1 MG/DL (<0.4); BILIRUBIN,TOTAL 0.4 MG/DL (0.3-1.2); BLOOD UREA NITROGEN 13 MG/DL (9-23); CALCIUM LEVEL 9.9 MG/DL (8.3-10.6); CARBON DIOXIDE LEVEL 29 MMOL/L (20-31); CHLORIDE LEVEL 105 MMOL/L (98-107); CREATININE FOR GFR 0.54 MG/DL (0.55-1.30); GLOMERULAR FILTRATION RATE > 60.0 (>32); GLUCOSE, FASTING 133 MG/DL (74-106); POTASSIUM SERUM 4.3 MMOL/L (3.5-5.1); SODIUM LEVEL 138 MMOL/L (136-145); TOTAL PROTEIN 6.3 G/DL (5.7-8.2)
[2023-04-08] MEDS: ACETAMINOPHEN TAB 650MG DOSE (2X325MG) PO ONE ×3 (02:05→20:08)
[2023-04-08] MEDS ORDERED: ISOVUE-370 76% 100ML VIAL As Ordered ONE (03:00)
[2023-04-08] MEDS: NS 500 ML IV ONE (03:15)
[2023-04-08] MEDS: CIPROFLOXACIN 400 MG in IV 1 EA IV ONE (06:43)
[2023-04-08] MEDS ORDERED: ACET-910 PO (07:52)
[2023-04-08] MEDS ORDERED: HOME MED LIST COMPLETE! XX SCH (07:55)
[2023-04-08] MEDS: ACETAMINOPHEN *IV* 500 MG in IV 1 EA IV ONE (08:13)
[2023-04-08] MEDS: metroNIDAZOLE 500 MG in IV 1 EA IV ONE (08:37)
[2023-04-08 11:14] LABS: RSV AMPLIFICATION NEGATIVE (NEGATIVE)
[2023-04-08] MEDS ORDERED: ACETAMINOPHEN TAB 650MG DOSE (2X325MG) PO PRN (11:35)
[2023-04-08] MEDS: PANTOPRAZOLE SODIUM 40 MG in D5W 50 ML IV SCH (12:37)
[2023-04-08 13:05] LABS: C REACTIVE PROTEIN QUANTITATIV 12.5 MG/DL (<1.0)
[2023-04-08 13:13] LABS: PROCALCITONIN 1.24 ng/ml
[2023-04-08] MEDS: metroNIDAZOLE 500 MG in IV 1 EA IV SCH (14:17)
[2023-04-08] MEDS ORDERED: PILL CUTTER 1 EACH XX PRN (15:35)
[2023-04-08 15:54] VITALS: BP 110/60; TEMP 97.9; O2SAT 98
[2023-04-08] MEDS ORDERED: MORPHINE 4 MG/ML 1ML VIAL IV PRN (17:00)
[2023-04-08] MEDS: CIPROFLOXACIN 400 MG in IV 1 EA IV SCH (18:10)
[2023-04-08] MEDS: lamoTRIgine 100MG TAB PO SCH (20:08)
[2023-04-09] VITALS: BP 106/59; TEMP 97.4; O2SAT 98
[2023-04-09] MEDS: LEVOTHYROXINE 112MCG TABLET (0.112MG) PO SCH (05:19)
[2023-04-09 06:00] VITALS: BP 103/59; TEMP 99; O2SAT 95
[2023-04-09 06:27] LABS: BASO % 0.2 % (0.0-1.0); EOS # 0.1 10^3/uL (0.0-0.5); EOS % 0.3 % (0.0-3.0); LYMPH # 0.5 10^3/uL (1.5-5.0); LYMPH % 2.6 % (24.0-44.0); MEAN CORPUSCULAR HEMOGLOBIN 31.1 pg (27.0-33.0); MEAN CORPUSCULAR HGB CONC 32.4 g/dl (32.0-36.5); MEAN CORPUSCULAR VOLUME 95.9 fl (80.0-96.0); MONO # 0.9 10^3/uL (0.0-0.8); MONO % 4.5 % (2.0-8.0); NEUTROPHILS # 18.4 10^3/uL (1.5-8.5); NEUTROPHILS % 91.8 % (36.0-66.0); PLATELET COUNT, AUTOMATED 209 10^3/uL (150-450); RED BLOOD COUNT 3.38 10^6/uL (4.00-5.40)
[2023-04-09 06:30] LABS: HEMATOCRIT 32.4 % (36.0-47.0); HEMOGLOBIN 10.5 g/dl (12.0-15.5)
[2023-04-09 06:35] LABS: BLOOD UREA NITROGEN 18 MG/DL (9-23); CALCIUM LEVEL 9.1 MG/DL (8.3-10.6); CARBON DIOXIDE LEVEL 24 MMOL/L (20-31); CHLORIDE LEVEL 107 MMOL/L (98-107); CREATININE FOR GFR 0.56 MG/DL (0.55-1.30); GLOMERULAR FILTRATION RATE > 60.0 (>32); GLUCOSE, FASTING 86 MG/DL (74-106); MAGNESIUM LEVEL 1.7 MG/DL (1.8-2.4); POTASSIUM SERUM 3.9 MMOL/L (3.5-5.1); SODIUM LEVEL 138 MMOL/L (136-145)
[2023-04-09] MEDS: METAMUCIL (PSYLLIUM) PACKET PO SCH (08:31)
[2023-04-09] MEDS: MAG SULF 1GM/100ML (MAG RUN) 1 GM in IV 1 EA IV ONE (08:31)
[2023-04-09] MEDS: MORPHINE 2 MG/ML 1ML VIAL IV PRN (08:37)
[2023-04-09 09:07] VITALS: BP 100/58; TEMP 97.3; O2SAT 92
[2023-04-09 14:00] VITALS: BP 102/58; TEMP 99; O2SAT 94
[2023-04-09] MEDS ORDERED: MEROPENEM INJ 1 GM in IV 1 EA IV SCH (15:40)
[2023-04-09] MEDS: PIPERACILLIN/TAZOBACTAM SOD 4.5 GM in D5W MINI-BAG PLUS 50 ML IV SCH (17:24)
[2023-04-09] MEDS: NS 1,000 ML IV SCH (20:49)
[2023-04-09 22:00] VITALS: BP 102/59; TEMP 98.2; O2SAT 95
[2023-04-10 06:00] VITALS: BP 101/56; TEMP 98.1; O2SAT 93
[2023-04-10 06:49] LABS: BASO # 0.1 10^3/uL (0.0-0.2); BASO % 0.3 % (0.0-1.0); EOS # 0.1 10^3/uL (0.0-0.5); EOS % 0.7 % (0.0-3.0); HEMATOCRIT 30.7 % (36.0-47.0); HEMOGLOBIN 9.9 g/dl (12.0-15.5); LYMPH # 0.4 10^3/uL (1.5-5.0); LYMPH % 2.3 % (24.0-44.0); MEAN CORPUSCULAR HEMOGLOBIN 30.8 pg (27.0-33.0); MEAN CORPUSCULAR HGB CONC 32.2 g/dl (32.0-36.5); MEAN CORPUSCULAR VOLUME 95.6 fl (80.0-96.0); MONO % 5.6 % (2.0-8.0); NEUTROPHILS # 16.6 10^3/uL (1.5-8.5); NEUTROPHILS % 90.5 % (36.0-66.0); PLATELET COUNT, AUTOMATED 193 10^3/uL (150-450); RED BLOOD COUNT 3.21 10^6/uL (4.00-5.40); WHITE BLOOD COUNT 18.3 10^3/uL (4.0-10.0)
[2023-04-10 07:12] LABS: BLOOD UREA NITROGEN 17 MG/DL (9-23); CALCIUM LEVEL 8.5 MG/DL (8.3-10.6); CARBON DIOXIDE LEVEL 26 MMOL/L (20-31); CHLORIDE LEVEL 109 MMOL/L (98-107); CREATININE FOR GFR 0.58 MG/DL (0.55-1.30); GLOMERULAR FILTRATION RATE > 60.0 (>32); GLUCOSE, FASTING 90 MG/DL (74-106); MAGNESIUM LEVEL 1.8 MG/DL (1.8-2.4); POTASSIUM SERUM 3.8 MMOL/L (3.5-5.1); SODIUM LEVEL 140 MMOL/L (136-145)
[2023-04-10 08:00] VITALS: BP 110/60; TEMP 98.6; O2SAT 88
[2023-04-10 13:36] VITALS: BP 108/58; TEMP 98.8; O2SAT 95
[2023-04-10] MEDS: ACETAMINOPHEN TAB 650MG DOSE (2X325MG) PO PRN (13:50)
[2023-04-10 20:29] VITALS: BP 117/68; TEMP 98.1; O2SAT 95
[2023-04-11 05:46] VITALS: BP 114/66; TEMP 98.1; O2SAT 95
[2023-04-11 07:05] LABS: BASO % 0.1 % (0.0-1.0); EOS # 0.2 10^3/uL (0.0-0.5); EOS % 1.5 % (0.0-3.0); HEMATOCRIT 32.9 % (36.0-47.0); HEMOGLOBIN 10.7 g/dl (12.0-15.5); LYMPH # 0.7 10^3/uL (1.5-5.0); MEAN CORPUSCULAR HEMOGLOBIN 31.1 pg (27.0-33.0); MEAN CORPUSCULAR HGB CONC 32.5 g/dl (32.0-36.5); MEAN CORPUSCULAR VOLUME 95.6 fl (80.0-96.0); MONO # 0.9 10^3/uL (0.0-0.8); NEUTROPHILS # 11.5 10^3/uL (1.5-8.5); NEUTROPHILS % 85.7 % (36.0-66.0); PLATELET COUNT, AUTOMATED 223 10^3/uL (150-450); RED BLOOD COUNT 3.44 10^6/uL (4.00-5.40); WHITE BLOOD COUNT 13.4 10^3/uL (4.0-10.0)
[2023-04-11 07:34] LABS: BLOOD UREA NITROGEN 16 MG/DL (9-23); CALCIUM LEVEL 8.7 MG/DL (8.3-10.6); CARBON DIOXIDE LEVEL 28 MMOL/L (20-31); CHLORIDE LEVEL 107 MMOL/L (98-107); CREATININE FOR GFR 0.58 MG/DL (0.55-1.30); GLOMERULAR FILTRATION RATE > 60.0 (>32); GLUCOSE, FASTING 84 MG/DL (74-106); MAGNESIUM LEVEL 1.8 MG/DL (1.8-2.4); POTASSIUM SERUM 3.8 MMOL/L (3.5-5.1); SODIUM LEVEL 140 MMOL/L (136-145)
[2023-04-11] MEDS: NS 1,000 ML IV SCH (08:29)
[2023-04-11 08:36] VITALS: BP 112/68; TEMP 98.3; O2SAT 96
[2023-04-11 14:00] VITALS: BP 94/63; TEMP 98.1; O2SAT 97
[2023-04-11 14:55] VITALS: BP 97/60; TEMP 97.7; O2SAT 96
[2023-04-11 15:00] VITALS: BP 102/60
[2023-04-11 21:01] VITALS: BP_SYST 113; BP_SYST 133; BP_DIAS 46; BP_DIAS 76; TEMP 97.7; O2SAT 96
[2023-04-12 05:28] VITALS: BP 111/63; TEMP 97.8; O2SAT 97
[2023-04-12 06:17] LABS: BASO % 0.2 % (0.0-1.0); EOS # 0.2 10^3/uL (0.0-0.5); EOS % 1.7 % (0.0-3.0); LYMPH # 0.9 10^3/uL (1.5-5.0); MEAN CORPUSCULAR HEMOGLOBIN 30.8 pg (27.0-33.0); MEAN CORPUSCULAR HGB CONC 32.4 g/dl (32.0-36.5); MEAN CORPUSCULAR VOLUME 95.2 fl (80.0-96.0); MONO # 1.1 10^3/uL (0.0-0.8); MONO % 8.5 % (2.0-8.0); NEUTROPHILS # 10.1 10^3/uL (1.5-8.5); NEUTROPHILS % 81.7 % (36.0-66.0); PLATELET COUNT, AUTOMATED 257 10^3/uL (150-450); RED BLOOD COUNT 3.57 10^6/uL (4.00-5.40); WHITE BLOOD COUNT 12.4 10^3/uL (4.0-10.0)
[2023-04-12 06:29] LABS: BLOOD UREA NITROGEN 12 MG/DL (9-23); CALCIUM LEVEL 8.3 MG/DL (8.3-10.6); CARBON DIOXIDE LEVEL 26 MMOL/L (20-31); CHLORIDE LEVEL 108 MMOL/L (98-107); CREATININE FOR GFR 0.55 MG/DL (0.55-1.30); GLOMERULAR FILTRATION RATE > 60.0 (>32); GLUCOSE, FASTING 83 MG/DL (74-106); MAGNESIUM LEVEL 1.6 MG/DL (1.8-2.4); POTASSIUM SERUM 3.7 MMOL/L (3.5-5.1); SODIUM LEVEL 141 MMOL/L (136-145)
[2023-04-12] MEDS: MAG SULF 1GM/100ML (MAG RUN) 1 GM in IV 1 EA IV ONE ×2 (08:35→11:58)
[2023-04-12 14:00] VITALS: BP 112/63; TEMP 97.5; O2SAT 96
[2023-04-12 20:15] VITALS: BP 149/79; TEMP 98.4; O2SAT 94
[2023-04-12] MEDS: PANTOPRAZOLE 40MG VIAL IV SCH (20:43)
[2023-04-12] MEDS: MORPHINE 2 MG/ML 1ML VIAL IV PRN (20:45)
[2023-04-13 06:03] LABS: BASO % 0.2 % (0.0-1.0); EOS # 0.1 10^3/uL (0.0-0.5); EOS % 1.1 % (0.0-3.0); HEMATOCRIT 32.2 % (36.0-47.0); HEMOGLOBIN 10.2 g/dl (12.0-15.5); LYMPH # 0.7 10^3/uL (1.5-5.0); LYMPH % 5.4 % (24.0-44.0); MEAN CORPUSCULAR HEMOGLOBIN 29.6 pg (27.0-33.0); MEAN CORPUSCULAR HGB CONC 31.7 g/dl (32.0-36.5); MEAN CORPUSCULAR VOLUME 93.3 fl (80.0-96.0); MONO # 1.3 10^3/uL (0.0-0.8); MONO % 10.3 % (2.0-8.0); NEUTROPHILS # 10.2 10^3/uL (1.5-8.5); PLATELET COUNT, AUTOMATED 240 10^3/uL (150-450); RED BLOOD COUNT 3.45 10^6/uL (4.00-5.40); WHITE BLOOD COUNT 12.5 10^3/uL (4.0-10.0)
[2023-04-13 06:20] VITALS: BP 133/72; TEMP 97.5; O2SAT 95
[2023-04-13 06:37] LABS: BLOOD UREA NITROGEN 8 MG/DL (9-23); CALCIUM LEVEL 8.3 MG/DL (8.3-10.6); CARBON DIOXIDE LEVEL 27 MMOL/L (20-31); CHLORIDE LEVEL 108 MMOL/L (98-107); CREATININE FOR GFR 0.52 MG/DL (0.55-1.30); GLOMERULAR FILTRATION RATE > 60.0 (>32); GLUCOSE, FASTING 88 MG/DL (74-106); POTASSIUM SERUM 3.4 MMOL/L (3.5-5.1); SODIUM LEVEL 141 MMOL/L (136-145)
[2023-04-13] MEDS: KCL 10MEQ/100ML SWI (KRUN) 10 MEQ in IV 1 EA IV SCH (11:04)
[2023-04-13] MEDS: POTASSIUM CHLORIDE 10MEQ SR TABLET PO ONE (12:20)
[2023-04-13 14:00] VITALS: BP 127/72; TEMP 98.1; O2SAT 96
[2023-04-13] MEDS: ONDANSETRON 4MG ORAL DISINTEGRATING TAB PO PRN (18:23)
[2023-04-13] MEDS: SENNA 8.6 MG TAB (SENOKOT) PO SCH (20:29)
[2023-04-13 21:17] VITALS: BP 130/69; TEMP 97.2; O2SAT 96
[2023-04-14 05:50] VITALS: BP 97/55; TEMP 98.2; O2SAT 94
[2023-04-14 06:03] LABS: BASO % 0.3 % (0.0-1.0); EOS # 0.3 10^3/uL (0.0-0.5); EOS % 1.9 % (0.0-3.0); HEMATOCRIT 32.2 % (36.0-47.0); HEMOGLOBIN 10.3 g/dl (12.0-15.5); LYMPH # 0.7 10^3/uL (1.5-5.0); LYMPH % 4.8 % (24.0-44.0); MEAN CORPUSCULAR HEMOGLOBIN 30.5 pg (27.0-33.0); MEAN CORPUSCULAR VOLUME 95.3 fl (80.0-96.0); MONO # 1.6 10^3/uL (0.0-0.8); MONO % 11.1 % (2.0-8.0); NEUTROPHILS # 11.2 10^3/uL (1.5-8.5); NEUTROPHILS % 80.8 % (36.0-66.0); PLATELET COUNT, AUTOMATED 233 10^3/uL (150-450); RED BLOOD COUNT 3.38 10^6/uL (4.00-5.40); WHITE BLOOD COUNT 13.9 10^3/uL (4.0-10.0)
[2023-04-14 06:36] LABS: BLOOD UREA NITROGEN 7 MG/DL (9-23); CARBON DIOXIDE LEVEL 29 MMOL/L (20-31); CHLORIDE LEVEL 109 MMOL/L (98-107); CREATININE FOR GFR 0.55 MG/DL (0.55-1.30); GLOMERULAR FILTRATION RATE > 60.0 (>32); GLUCOSE, FASTING 105 MG/DL (74-106); MAGNESIUM LEVEL 1.6 MG/DL (1.8-2.4); POTASSIUM SERUM 3.5 MMOL/L (3.5-5.1); SODIUM LEVEL 141 MMOL/L (136-145)
[2023-04-14] MEDS: MAG SULF 1GM/100ML (MAG RUN) 1 GM in IV 1 EA IV SCH (08:16)
[2023-04-14] MEDS ORDERED: MORPHINE 2 MG/ML 1ML VIAL IV PRN (12:15)
[2023-04-14] MEDS ORDERED: BISACODYL 10MG SUPP PR PRN (12:15)
[2023-04-15] MEDS: PROMETHAZINE 25MG/ML 1ML VIAL IV PRN (11:20)
[2023-04-15] MEDS ORDERED: ONDANSETRON 4MG 2ML VIAL IV PRN (13:05)
[2023-04-15] MEDS: MORPHINE 10MG/0.5ML ORAL CONCENTRATE SOLUTION U/D SL PRN (21:29)
[2023-04-16] MEDS ORDERED: ONDANSETRON 4MG ORAL DISINTEGRATING TAB PO PRN (10:05)
[2023-04-17] MEDS ORDERED: MORP1SOL5 PO (09:37)
[2023-04-17] MEDS ORDERED: HYOS125TA PO (09:37)
[2023-04-17] MEDS ORDERED: ATIV1TAB10 PO (09:37)
[2023-04-17] MEDS ORDERED: ONDA4TAB6 PO (09:37)
[2023-04-17] MEDS: LORazepam 1 MG TAB PO PRN (11:40)
== END 2023-04-17 12:23 | disposition hospice, inpatient (51) | DRG 393 ==
LOC: M ED 18:30 → M ED INP 04-08 11:06 → M MSPAV 04-08 15:50
PROVIDERS: ADMIT Internal Medicine; ATTEND Internal Medicine
DX: K63.1 Perforation of intestine (nontraumatic) (principal); E43 Unspecified severe protein-calorie malnutrition; C22.1 Intrahepatic bile duct carcinoma; C79.51 Secondary malignant neoplasm of bone; C20 Malignant neoplasm of rectum; C77.0 Secondary and unspecified malignant neoplasm of lymph nodes of head, face and neck; Z68.1 Body mass index [BMI] 19.9 or less, adult; C19 Malignant neoplasm of rectosigmoid junction; G43.909 Migraine, unspecified, not intractable, without status migrainosus; I10 Essential (primary) hypertension; E03.9 Hypothyroidism, unspecified; L71.9 Rosacea, unspecified; J30.9 Allergic rhinitis, unspecified; Z51.5 Encounter for palliative care; Z66 Do not resuscitate; E83.42 Hypomagnesemia; K21.9 Gastro-esophageal reflux disease without esophagitis; Z98.41 Cataract extraction status, right eye; Z98.42 Cataract extraction status, left eye; Z90.49 Acquired absence of other specified parts of digestive tract; Z95.828 Presence of other vascular implants and grafts; Z87.891 Personal history of nicotine dependence; Z79.890 Hormone replacement therapy; Z79.899 Other long term (current) drug therapy; Z88.1 Allergy status to other antibiotic agents; Z91.041 Radiographic dye allergy status; Z91.018 Allergy to other foods; Z92.21 Personal history of antineoplastic chemotherapy; Z92.3 Personal history of irradiation